=== PATIENT | female | born 1980 | race Caucasian/White ===

== ENCOUNTER 2017-12-22 11:21 | Emergency (ER) | payer BC ==
[2017-12-22 11:37] VITALS: BP 107/75
--- NOTE | 2017-12-22 12:05 | EDM.PDOC ---
ED HPI GENERAL MEDICAL PROBLEM - General Chief Complaint: Bite:Animal, Insect Stated Complaint: CAT BITE ON THUMB Time Seen by Provider: 12/22/17 11:34 Source of Information: Reports: Patient History Limitations: Reports: No Limitations - History of Present Illness INITIAL COMMENTS - FREE TEXT/NARRATIVE: The patient presents with a cat bite to her right thumb. The cat has been sick. She went to pet it and it bit her on the thumb. The cat is not up to date with rabies. It is her cat. The cat is a house cat but it does sneak out at times. The cat recently had kittens. The patient is not up to date with tetanus. Onset: Sudden Duration: Minutes: Location: Reports: Upper Extremity, Right (Thumb) Quality: Reports: Sharp Severity: Mild Improves with: Reports: None Worsens with: Reports: None Associated Symptoms: Reports: No Other Symptoms - Related Data Allergies Allergy/AdvReac Type Severity Reaction Status Date / Time No Known Allergies Allergy Verified 12/22/17 11:30 Home Meds: Home Meds Amoxicillin/Potassium Clav [Augmentin 875-125 Tablet] 1 each PO BID #20 tablet 12/22/17 [Rx] Past Medical History - Past Health History Medical/Surgical History: Denies Medical/Surgical History HEENT History: Reports: Impaired 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 WITH LAST CHILD. Social & Family History - Tobacco Use Smoking Status *Q: Current Every Day Smoker Years of Tobacco use: 20 Packs/Tins Daily: 1 - Caffeine Use Caffeine Use: Reports: Energy Drinks - Recreational Drug Use Recreational Drug Use: No ED ROS GENERAL - Review of Systems Review Of Systems: See Below Constitutional: Reports: No Symptoms HEENT: Reports: No Symptoms Respiratory: Reports: No Symptoms Cardiovascular: Reports: No Symptoms Endocrine: Reports: No Symptoms GI/Abdominal: Reports: No Symptoms : Reports: No Symptoms Musculoskeletal: Reports: Other (Puncture wound to right thumb) Skin: Reports: No Symptoms Neurological: Reports: No Symptoms ED EXAM, ANIMAL BITE - Physical Exam Exam: See Below Exam Limited By: No Limitations General Appearance: Alert, No Apparent Distress Ears: Normal External Exam Nose: Normal Inspection Head: Atraumatic, Normocephalic Neck: Normal Inspection Respiratory/Chest: No Respiratory Distress Extremities: Other (Puncture wound to right thumb. No erythema or drainage.) Course - Vital Signs Last Recorded V/S: Last Vital Signs Temp 97.8 F 12/22/17 11:34 Pulse 116 H 12/22/17 11:34 Resp 18 12/22/17 11:34 BP 107/75 12/22/17 11:34 Pulse Ox 97 12/22/17 11:34 - Orders/Labs/Meds Orders: Active Orders 24 hr Category Date Time Status Vaccines to be Administered [RC] PER UNIT ROUTINE Care 12/22/17 12:52 Active Meds: Medications Discontinued Medications Generic Name Dose Route Start Last Admin Trade Name Freq PRN Reason Stop Dose Admin Diphtheria/Tetanus/Acell Pertussis 0.5 ml 12/22/17 12:52 Adacel IM 12/22/17 12:53 .ONCE ONE Rabies Vaccine Human Diploid Cell 2.5 unit 12/22/17 12:52 Imovax Rabies IM 12/22/17 12:53 .ONCE ONE - Re-Assessments/Exams Free Text/Narrative Re-Assessment/Exam: 12/22/17 12:58 I called the patient's vet and ideally if the cat was immunized before they could just observe the cat for 10 days but since the cat has not been immunized it is more complex. They could kill the cat now to be tested but that would not happen until about Sunday. The vet at [facility] did recommend starting the vaccine. I did call the state and they did recommend the vaccine but we can hold off on the IGG until the cat gets checked. Departure - Departure Time of Disposition: 13:15 Disposition: Home, Self-Care 01 Condition: Good Clinical Impression: Cat bite Qualifiers: Encounter type: initial encounter Qualified Code(s): W55.01XA - Bitten by cat, initial encounter - Discharge Information Prescriptions: Amoxicillin/Potassium Clav [Augmentin 875-125 Tablet] 1 each PO BID #20 tablet Referrals: PCP,None [Primary Care Provider] - Forms: ED Department Discharge Additional Instructions: Clean the bite wound a couple times per day with warm soapy water and apply antibiotics after. Take the augmentin 2 times per day for 10 days. You were given the first dose of rabies vaccine. You need to have your cat examined by your vet and possibly tested for rabies. Please return if you have any concerns. The [place] department of health has been contacted. They said if you have any concerns you can call them at . - My Orders Last 24 Hours: My Active Orders 12/22/17 12:52 Vaccines to be Administered [RC] PER UNIT ROUTINE - Assessment/Plan Last 24 Hours: My Active Orders 12/22/17 12:52 Vaccines to be Administered [RC] PER UNIT ROUTINE
[2017-12-22] MEDS ORDERED: Rabies Vaccine, Human Diploid Cell PF 2.5 Unit SDV IM ONE (12:52)
[2017-12-22] MEDS ORDERED: Diphtheria,Pertussis(Acell),Tetanus Vaccine 0.5 ML SDV IM ONE (12:52)
== END 2017-12-22 13:49 | disposition home or self-care (01) ==
LOC: JD.ED 11:21
DX: S61.031A Puncture wound without foreign body of right thumb without damage to nail, initial encounter (principal); W55.01XA Bitten by cat, initial encounter; F17.210 Nicotine dependence, cigarettes, uncomplicated; Z23 Encounter for immunization
CPT/HCPCS: 90471; 90472; 90675; 90715; 99283; 99283-25

== ENCOUNTER 2018-12-19 15:27 | Emergency (ER) | payer BC ==
[2018-12-19 15:41] VITALS: BP 111/83
[2018-12-19] MEDS ORDERED: LORazepam 1 MG Tab PO ONE (16:15)
--- NOTE | 2018-12-19 16:27 | EDM.PDOC ---
ED HPI GENERAL MEDICAL PROBLEM - General Chief Complaint: Allergic Reaction Stated Complaint: ALLERGIC REACTION Time Seen by Provider: 12/19/18 15:35 Source of Information: Reports: Patient History Limitations: Reports: No Limitations - History of Present Illness INITIAL COMMENTS - FREE TEXT/NARRATIVE: The patient took some Celexa 20mg today and she developed blotching in her arms and burning to her skin and more anxiety. She also vomited twice. This was the first time taking the medication. She is taking it for anxiety. She has lots of stressors in her lift and she needed some help. She does not feel short of breath and she has no swelling in her throat. Onset: Sudden Duration: Minutes: Location: Reports: Generalized Quality: Reports: Burning Severity: Moderate Improves with: Reports: None Worsens with: Reports: None Associated Symptoms: Reports: Nausea/Vomiting. 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 WITH LAST CHILD. Social & Family History - Tobacco Use Smoking Status *Q: Current Every Day Smoker Years of Tobacco use: 21 Packs/Tins Daily: 1.5 - Caffeine Use Caffeine Use: Reports: Soda - Recreational Drug Use Recreational Drug Use: No ED ROS ALLERGIC REACTION - Review of Systems Review Of Systems: See Below Constitutional: Reports: No Symptoms HEENT: Reports: No Symptoms Respiratory: Reports: No Symptoms Cardiovascular: Reports: No Symptoms Endocrine: Reports: No Symptoms GI/Abdominal: Reports: Nausea, Vomiting : Reports: No Symptoms Musculoskeletal: Reports: No Symptoms ED EXAM GENERAL NO PERIP PULSE - Physical Exam Exam: See Below Exam Limited By: No Limitations General Appearance: Alert, No Apparent Distress Ears: Normal External Exam Nose: Normal Inspection Throat/Mouth: Normal Inspection Head: Atraumatic, Normocephalic Neck: Normal Inspection Respiratory/Chest: No Respiratory Distress, Lungs Clear, Normal Breath Sounds Cardiovascular: Regular Rate, Rhythm, No Edema, No Murmur GI/Abdominal: Soft, Non-Tender, No Organomegaly, No Mass Back Exam: Normal Inspection Course - Vital Signs Last Recorded V/S: Last Vital Signs Temp 98.3 F 12/19/18 15:35 Pulse 98 12/19/18 15:35 Resp 18 12/19/18 15:35 BP 111/83 12/19/18 15:35 Pulse Ox 100 12/19/18 15:35 - Orders/Labs/Meds Meds: Medications Discontinued Medications Generic Name Dose Route Start Last Admin Trade Name Corby PRN Reason Stop Dose Admin Lorazepam 1 mg 12/19/18 16:15 Ativan PO 12/19/18 16:16 ONETIME ONE - Re-Assessments/Exams Free Text/Narrative Re-Assessment/Exam: 12/19/18 16:41 I gave her some ativan to help with the anxiety she is experiencing now. I will have her stop the celexa and try some paxil. Departure - Departure Time of Disposition: 16:45 Disposition: Home, Self-Care 01 Condition: Good Clinical Impression: Adverse drug reaction Qualifiers: Encounter type: initial encounter Qualified Code(s): T50.905A - Adverse effect of unspecified drugs, medicaments and biological substances, initial encounter - Discharge Information *PRESCRIPTION DRUG MONITORING PROGRAM REVIEWED*: Not Applicable *COPY OF PRESCRIPTION DRUG MONITORING REPORT IN PATIENT GIANNA: Not Applicable Prescriptions: PARoxetine HCl [Paxil] 10 mg PO DAILY #30 tablet Referrals: PCP,None [Primary Care Provider] - Forms: ED Department Discharge Additional Instructions: Try the paxil 10mg daily. Start it tomorrow. If that helps you can stay at the dose or talk to your provider about going up with the dose. Please return if you are worse.
--- NOTE | 2018-12-19 16:35 | EDM.PDOC ---
<Jerman Sadler - Last Filed: 12/19/18 16:21> ED HPI GENERAL MEDICAL PROBLEM - General Chief Complaint: Allergic Reaction Stated Complaint: ALLERGIC REACTION Time Seen by Provider: 12/19/18 15:35 Source of Information: Reports: Patient History Limitations: Reports: No Limitations - History of Present Illness INITIAL COMMENTS - FREE TEXT/NARRATIVE: 38 Year old female presents to ER for adverse reaction to a new medication prescribed by her provider in [place] for anxiety. The patient states that the medication was Celexa (Citalopram) which she took at about 1100. 30 minutes later she experienced a warm feeling, and burning sensation in her arms and shoulders that she describes as "blotchiness", dry mouth, and two bouts of diarrhea. Pt did not have any shortness of breath, wheezing, facial or oral swelling, urticaria, rash, nausea or vomiting. She took Benadryl almost immediately after symptoms with no relief. She denies any aggravating factors. Pt does admit to having chronic depression and anxiety which she has never been on medication. She is reluctant to mention that she has of personal issues and expresses that she does not want to discuss them at this time. However, she states that she has expressed them in more detail with her provider in [place]. She admits to increased caffeine use, increase smoking 1.5 pk/day, and also trouble sleeping. She denies suicidal thoughts or actions. Onset: Today Onset Date: 12/19/18 Onset Time: 11:00 Duration: Improving Location: Reports: Upper Extremity, Left, Upper Extremity, Right, Generalized, Other Quality: Reports: Burning Severity: Moderate Improves with: Reports: None Worsens with: Reports: None Context: Reports: Other (at rest) Associated Symptoms: Reports: Other (Diarrhea x 2 ). 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 WITH LAST CHILD. Social & Family History - Tobacco Use Smoking Status *Q: Current Every Day Smoker Years of Tobacco use: 21 Packs/Tins Daily: 1.5 - Caffeine Use Caffeine Use: Reports: Soda - Recreational Drug Use Recreational Drug Use: No ED ROS ALLERGIC REACTION - Review of Systems Review Of Systems: See Below Constitutional: Reports: No Symptoms. Denies: Fever, Chills, Malaise, Weakness , Diaphoresis HEENT: Reports: No Symptoms. Denies: Eye Pain, Nosebleed, Rhinitis, Throat Pain , Throat Swelling Respiratory: Reports: No Symptoms. Denies: Shortness of Breath, Wheezing, Cough Cardiovascular: Reports: No Symptoms. Denies: Chest Pain, Edema, Palpitations Endocrine: Reports: No Symptoms GI/Abdominal: Reports: No Symptoms, Diarrhea (See hpi). Denies: Abdominal Pain , Difficulty Swallowing, Flatus, Vomiting : Reports: No Symptoms. Denies: Dysuria, Flank Pain, Frequency, Pain Musculoskeletal: Reports: No Symptoms. Denies: Muscle Stiffness Skin: Reports: Other (Pt states her arms are "blotchy" and have a burning sensation bilaterally) Neurological: Reports: No Symptoms. Denies: Dizziness, Headache, Paresthesia, Tingling, Weakness Psychiatric: Reports: Anxiety, Depression, Other (Never hospitalized for psychiatric illness). Denies: Suicidal Ideation Hematologic/Lymphatic: Reports: No Symptoms. Denies: Anemia Immunologic: Reports: Other (Possible adverse reaction to Citalopram.) ED EXAM GENERAL NO PERIP PULSE - Physical Exam Exam: See Below Exam Limited By: No Limitations General Appearance: Alert, WD/WN, No Apparent Distress, Thin Eye Exam: Bilateral Eye: EOMI, Normal Inspection, PERRL Ears: Normal External Exam, Normal Canal, Hearing Grossly Normal, Normal TMs Nose: Normal Inspection, Normal Mucosa, No Blood Throat/Mouth: Normal Inspection, Normal Lips, Normal Teeth, Normal Gums, Normal Oropharynx, Normal Voice, No Airway Compromise Head: Atraumatic, Normocephalic Neck: Normal Inspection, Supple, Non-Tender, Full Range of Motion Respiratory/Chest: No Respiratory Distress, Lungs Clear, Normal Breath Sounds, No Accessory Muscle Use, Chest Non-Tender. No: Wheezing, Stridor, Prolonged Expiration Cardiovascular: Normal Peripheral Pulses, Regular Rate, Rhythm, No Edema, No Gallop, No JVD, No Murmur, No Rub GI/Abdominal: Normal Bowel Sounds, Soft, Non-Tender, No Organomegaly, No Distention, No Abnormal Bruit, No Mass (Female) Exam: Deferred Rectal (Female) Exam: Deferred Back Exam: Normal Inspection, Full Range of Motion, NT Extremities: Normal Inspection, Normal Range of Motion, Non-Tender, Normal Capillary Refill, No Pedal Edema Neurological: Alert, Oriented, CN II-XII Intact, Normal Cognition, Normal Gait, Normal Reflexes, No Motor/Sensory Deficits Psychiatric: Anxious, Other (Assertive) Skin Exam: Warm, Dry, Intact, Normal Color, No Rash (of the upper or lower extremities, torsoe, nech or head.), Tattoo(s) Lymphatic: No Adenopathy Course - Vital Signs Last Recorded V/S: Last Vital Signs Temp 98.3 F 12/19/18 15:35 Pulse 98 12/19/18 15:35 Resp 18 12/19/18 15:35 BP 111/83 12/19/18 15:35 Pulse Ox 100 12/19/18 15:35 - Orders/Labs/Meds Meds: Medications Discontinued Medications Generic Name Dose Route Start Last Admin Trade Name Daronq PRN Reason Stop Dose Admin Lorazepam 1 mg 12/19/18 16:15 Ativan PO 12/19/18 16:16 ONETIME ONE Departure - Departure Disposition: Home, Self-Care 01 Clinical Impression: Adverse drug reaction Qualifiers: Encounter type: initial encounter Qualified Code(s): T50.905A - Adverse effect of unspecified drugs, medicaments and biological substances, initial encounter - Discharge Information Prescriptions: PARoxetine HCl [Paxil] 10 mg PO DAILY #30 tablet Referrals: PCP,None [Primary Care Provider] - Forms: ED Department Discharge Additional Instructions: Try the paxil 10mg daily. Start it tomorrow. If that helps you can stay at the dose or talk to your provider about going up with the dose. Please return if you are worse. <Sharath Mcintosh - Last Filed: 12/19/18 16:47> Course - Re-Assessments/Exams Free Text/Narrative Re-Assessment/Exam: 12/19/18 16:46 I examined the patient myself and I agree with Murtaza's assessment and plan. I gave her some ativan and I will get her some paxil that she can start tomorrow. Departure - Departure Time of Disposition: 16:50 - Discharge Information *PRESCRIPTION DRUG MONITORING PROGRAM REVIEWED*: Not Applicable *COPY OF PRESCRIPTION DRUG MONITORING REPORT IN PATIENT GIANNA: Not Applicable
== END 2018-12-19 17:08 | disposition home or self-care (01) ==
LOC: JD.ED 15:27
DX: R20.8 Other disturbances of skin sensation (principal); R19.7 Diarrhea, unspecified; T43.225A Adverse effect of selective serotonin reuptake inhibitors, initial encounter; F17.210 Nicotine dependence, cigarettes, uncomplicated; Z79.899 Other long term (current) drug therapy
CPT/HCPCS: 99283; A9270

== ENCOUNTER 2018-12-21 21:01 | Emergency (ER) | payer BC ==
[2018-12-21] MEDS ORDERED: Sodium Chloride 0.9% 1,000 ML ONE ×3 (23:19)
[2018-12-22 08:21] VITALS: BP 115/85
[2018-12-22] MEDS ORDERED: Lactated Ringers 1,000 ML IV ONE (08:34)
--- NOTE | 2018-12-22 14:29 | CR ---
Chest: Two views of the chest were obtained. Comparison: No previous chest x-ray. Heart size and mediastinum are normal. Lungs are clear. Lucent line is identified within the anterior right sixth rib compatible with fracture, most likely subacute. Bony structures are otherwise unremarkable. Lungs are slightly hyperinflated. Impression: 1. Lungs slightly hyperinflated. This may represent good inspiratory study but please correlate if there are any symptoms of asthma or history of smoking. 2. Fracture within the anterior right sixth rib, most likely subacute in age. 3. Nothing acute is otherwise seen. Diagnostic code #3
--- NOTE | 2019-01-04 20:22 | EDM.PDOC ---
ED HPI GENERAL MEDICAL PROBLEM - General Chief Complaint: Skin Complaint Stated Complaint: POSS ALLERGIC REACTION CHEST PAIN Time Seen by Provider: 12/21/18 21:58 Source of Information: Reports: Patient History Limitations: Reports: No Limitations - History of Present Illness INITIAL COMMENTS - FREE TEXT/NARRATIVE: The patient was seen during [facility] downtime. Notes were taken, and this electronic medical record is created from those notes. Medical records indicate that the patient was seen in this ED 2 days ago, , 12/19/2018, for a possible adverse reaction to Celexa that she had just been prescribed and taken for the first time that day. She reported a warm feeling, a burning sensation in her arms and shoulders, a dry mouth, and 2 episodes of diarrhea. She did not have any shortness of breath, wheezing, facial or oral swelling, urticaria, rash, nausea, or vomiting. She took Benadryl after her symptoms began, with no relief. She reported a history of chronic anxiety and depression, not previously treated. Her physical exam was unremarkable. She was given 1 mg of oral Ativan and discharged home with a prescription for Paxil 10 mg that she was instructed to start the following day (yesterday). The patient now returns to the ED, stating that she is now having a reaction to Lexapro that she was started on today. She states that she filled the prescription for Paxil that she was prescribed by the ED physician 2 days ago, but did not take any (it's not clear why not). She spoke with her PCP yesterday , 12/20/2018, who then called in a prescription for Lexapro. The patient took her first dose of Lexapro today. She states that the left side of her chest began burning around 18:00, and that this is not the same as the burning sensation that she also feels across her chest - the left sided burning sensation is new, and she has not had it before. She continues to have the burning sensation felt across her chest and down both of her arms, all the way to her fingertips, which has been coming and going since 12/19/2018. She reports having nausea and vomiting. She reports feeling vertiginous today, worse if she looks down. She denies prior episodes of vertigo. She denies having tinnitus, ear pain, or decreased hearing. No recent fever. She reports having blotchy skin on and off since 12/11/2018, although she does not have a rash at this time, and did not take any photographs. She denies symptoms of angioedema or wheezing, although she states that she is feeling short of breath here in the ED, associated with the sensation of having an anxiety attack. Here in the ED, the patient is found to be hemodynamically stable. The patient's PCP is at the [facility]. 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 ED EXAM, GENERAL - Physical Exam Exam: See Below Exam Limited By: No Limitations General Appearance: Alert, No Apparent Distress, Thin Eye Exam: Bilateral Eye: EOMI, Normal Inspection Ears: Normal External Exam, Normal Canal, Hearing Grossly Normal, Normal TMs Nose: Normal Inspection, Normal Mucosa, No Blood Throat/Mouth: Normal Inspection, Normal Lips (no angioedema), Normal Teeth, Normal Gums, Normal Oropharynx (no uvular swelling), Normal Voice, No Airway Compromise Head: Atraumatic, Normocephalic Neck: Normal Inspection, Supple, Non-Tender, Full Range of Motion. No: Lymphadenopathy (L), Lymphadenopathy (R) Respiratory/Chest: No Respiratory Distress, Lungs Clear, Normal Breath Sounds, No Accessory Muscle Use. No: Decreased Breath Sounds, Crackles, Rhonchi, Wheezing, Stridor, Prolonged Expiration Cardiovascular: Normal Peripheral Pulses, Regular Rate, Rhythm, No Edema, No Gallop, No JVD, No Murmur, No Rub Peripheral Pulses: 4+: Radial (L), Radial (R) GI/Abdominal: Normal Bowel Sounds, Soft, Non-Tender, No Organomegaly, No Distention, No Abnormal Bruit, No Mass (Female) Exam: Deferred Rectal (Female) Exam: Deferred Back Exam: Normal Inspection, Full Range of Motion, NT Extremities: Normal Inspection, Normal Range of Motion, No Pedal Edema, Normal Capillary Refill Neurological: Alert, Oriented, Normal Cognition, No Motor/Sensory Deficits Psychiatric: Anxious Skin Exam: Warm, Dry, Intact, Normal Color, No Rash EKG INTERPRETATION EKG Date: 12/21/18 Time: 22:51 Rhythm: NSR (2 PVCs) Rate (Beats/Min): 67 [place]: Normal P-Wave: Present QRS: Normal ST-T: Normal QT: Normal EKG Interpretation Comments[facility] - unable to see if prior ECG has been done. Course - Vital Signs Last Recorded V/S: Last Vital Signs Temp 36.6 C 12/22/18 01:06 Pulse 72 12/22/18 01:06 Resp 16 12/22/18 01:06 BP 115/85 12/22/18 01:06 Pulse Ox 99 12/22/18 01:06 - Orders/Labs/Meds Labs: Laboratory Tests 12/21/18 12/21/18 12/21/18 Range/Units 23:05 23:05 23:05 WBC 10.08 H (3.98-10.04) K/mm3 RBC 4.87 (3.98-5.22) M/mm3 Hgb 15.1 (11.2-15.7) gm/L Hct 44.4 (34.1-44.9) % MCV 91.2 (79.4-94.8) fl MCH 31.0 (25.6-32.2) pg MCHC 34.0 (32.2-35.5) g/dl RDW Std Deviation 46.0 (36.4-46.3) fL Plt Count 327 (182-369) K/mm3 MPV 9.1 L (9.4-12.3) fl Neutrophils % (Manual) 59 (40-60) % Band Neutrophils % 0 (0-10) % Lymphocytes % (Manual) 32 (20-40) % Atypical Lymphs % 0 % Monocytes % (Manual) 7 (2-10) % Eosinophils % (Manual) 1 (0.7-5.8) % Basophils % (Manual) 1 (0.1-1.2) Platelet Estimate Adequate RBC Morph Comment Normal D-Dimer, Quantitative < 0.19 L (0.19-0.50) mg/L ABG pH (7.35-7.45) ABG pCO2 (35.0-45.0) mmHg ABG pO2 (80.0-100.0) mmHg ABG HCO3 (22.0-26.0) meq/L ABG O2 Saturation (96.0-97.0) % ABG Base Excess (-2-2.0) Shady Test O2 Delivery Device FiO2 (21.00-100.00) % Sodium 142 (136-145) mEq/L Potassium 3.3 L (3.5-5.1) mEq/L Chloride 106 (98-107) mEq/L Carbon Dioxide 24 (21-32) mEq/L Anion Gap 15.3 H (5-15) BUN 14 (7-18) mg/dL Creatinine 0.8 (0.55-1.02) mg/dL Est Cr Clr Drug Dosing TNP Estimated GFR (MDRD) > 60 (>60) mL/min BUN/Creatinine Ratio 17.5 (14-18) Glucose 96 (74-106) mg/dL Calcium 10.1 (8.5-10.1) mg/dL Magnesium 2.3 (1.8-2.4) mg/dl Total Bilirubin 0.4 (0.2-1.0) mg/dL AST 11 L (15-37) U/L ALT 21 (14-59) U/L Alkaline Phosphatase 70 (46-116) U/L C-Reactive Protein 0.2 (<1.0) mg/dL Total Protein 7.8 (6.4-8.2) g/dl Albumin 4.4 (3.4-5.0) g/dl Globulin 3.4 gm/dL Albumin/Globulin Ratio 1.3 (1-2) TSH 3rd Generation 2.090 (0.358-3.74) uIU/mL Urine Color (Yellow) Urine Appearance (Clear) Urine pH (5.0-8.0) Ur Specific [place] (1.005-1.030) Urine Protein (Negative) Urine Glucose (UA) (Negative) Urine Ketones (Negative) Urine Occult Blood (Negative) Urine Nitrite (Negative) Urine Bilirubin (Negative) Urine Urobilinogen (0.2-1.0) Ur Leukocyte Esterase (Negative) Urine RBC (0-5) /hpf Urine WBC (0-5) /hpf Ur Epithelial Cells (0-5) /hpf Urine Bacteria (FEW) /hpf Urine Mucus (FEW) /hpf Urine HCG, Qual (NEGATIVE) 12/21/18 12/21/18 12/22/18 Range/Units 23:15 23:15 08:34 WBC (3.98-10.04) K/mm3 RBC (3.98-5.22) M/mm3 Hgb (11.2-15.7) gm/L Hct (34.1-44.9) % MCV (79.4-94.8) fl MCH (25.6-32.2) pg MCHC (32.2-35.5) g/dl RDW Std Deviation (36.4-46.3) fL Plt Count (182-369) K/mm3 MPV (9.4-12.3) fl Neutrophils % (Manual) (40-60) % Band Neutrophils % (0-10) % Lymphocytes % (Manual) (20-40) % Atypical Lymphs % % Monocytes % (Manual) (2-10) % Eosinophils % (Manual) (0.7-5.8) % Basophils % (Manual) (0.1-1.2) Platelet Estimate RBC Morph Comment D-Dimer, Quantitative (0.19-0.50) mg/L ABG pH 7.41 (7.35-7.45) ABG pCO2 31.7 L (35.0-45.0) mmHg ABG pO2 91.0 (80.0-100.0) mmHg ABG HCO3 19.8 L (22.0-26.0) meq/L ABG O2 Saturation 98.0 H (96.0-97.0) % ABG Base Excess -3.3 L (-2-2.0) Shady Test Positive O2 Delivery Device Room air FiO2 0.00 L (21.00-100.00) % Sodium (136-145) mEq/L Potassium (3.5-5.1) mEq/L Chloride (98-107) mEq/L Carbon Dioxide (21-32) mEq/L Anion Gap (5-15) BUN (7-18) mg/dL Creatinine (0.55-1.02) mg/dL Est Cr Clr Drug Dosing Estimated GFR (MDRD) (>60) mL/min BUN/Creatinine Ratio (14-18) Glucose (74-106) mg/dL Calcium (8.5-10.1) mg/dL Magnesium (1.8-2.4) mg/dl Total Bilirubin (0.2-1.0) mg/dL AST (15-37) U/L ALT (14-59) U/L Alkaline Phosphatase (46-116) U/L C-Reactive Protein (<1.0) mg/dL Total Protein (6.4-8.2) g/dl Albumin (3.4-5.0) g/dl Globulin gm/dL Albumin/Globulin Ratio (1-2) TSH 3rd Generation (0.358-3.74) uIU/mL Urine Color Dark yellow (Yellow) Urine Appearance Clear (Clear) Urine pH 6.0 (5.0-8.0) Ur Specific [place] > or = 1.030 (1.005-1.030) Urine Protein 1+ H (Negative) Urine Glucose (UA) Negative (Negative) Urine Ketones 3+ H (Negative) Urine Occult Blood 2+ H (Negative) Urine Nitrite Negative (Negative) Urine Bilirubin 2+ H (Negative) Urine Urobilinogen 1.0 (0.2-1.0) Ur Leukocyte Esterase Negative (Negative) Urine RBC 10-20 H (0-5) /hpf Urine WBC Not seen (0-5) /hpf Ur Epithelial Cells 0-5 (0-5) /hpf Urine Bacteria Few (FEW) /hpf Urine Mucus Many H (FEW) /hpf Urine HCG, Qual Negative (NEGATIVE) Meds: Medications Discontinued Medications Generic Name Dose Route Start Last Admin Trade Name Freq PRN Reason Stop Dose Admin Lactated Ringer's 1,000 mls @ 999 mls/hr 12/22/18 08:34 12/22/18 08:36 Ringers, Lactated IV 12/22/18 09:34 Not Given .BOLUS ONE Sodium Chloride Confirm 12/21/18 23:19 Normal Saline Administered 12/21/18 23:20 Dose 1,000 mls @ as directed .ROUTE .STK-MED ONE Sodium Chloride Confirm 12/21/18 23:19 Normal Saline Administered 12/21/18 23:20 Dose 1,000 mls @ as directed .ROUTE .STK-MED ONE Sodium Chloride Confirm 12/21/18 23:19 Normal Saline Administered 12/21/18 23:20 Dose 1,000 mls @ as directed .ROUTE .STK-MED ONE - Re-Assessments/Exams Free Text/Narrative Re-Assessment/Exam: 12/21/18 22:39 The patient's history and physical examination strongly suggest that all of her symptoms are related to anxiety. I have no reason to suspect that she is having an adverse reaction to either the Celexa or Lexapro that she took, as she took only a single dose of each of those. Nevertheless, I have ordered a workup to rule out an organic underlying cause. 12/21/18 23:02 2-view chest radiograph appears to be grossly normal. The cardiac silhouette is within normal limits. No pulmonary vascular congestion. No pleural effusions. No focal infiltrate. No pneumothorax. Formal read per the Radiologist pending. 12/21/18 23:16 The patient is orthostatic. I will order a 1 L bolus of LR and then re-check orthostatics. 12/22/18 00:35 Following 1 L of LR, the patient is no longer orthostatic. 12/22/18 00:53 Test results discussed with the patient and her . Other than being found to be orthostatic, the patient's workup tonight was unremarkable. I explained that I suspect that the patient's symptoms are all due to hyperventilation syndrome due to anxiety, and I recommended that the patient continue with one of the anxiolytic medications that she has been prescribed. I explained to the patient that SSRIs usually take 3-4 weeks before they take effect, and that the patient needs to be patient with them and she is not going to get immediate, overnight relief. The patient stated that she would be willing to continue to take Lexapro. I recommended that she follow-up with her prescribing provider in 3 or 4 weeks. Departure - Departure Time of Disposition: 01:00 Disposition: Home, Self-Care 01 Condition: Good Clinical Impression: Hyperventilation syndrome - Discharge Information *PRESCRIPTION DRUG MONITORING PROGRAM REVIEWED*: Not Applicable *COPY OF PRESCRIPTION DRUG MONITORING REPORT IN PATIENT GIANNA: Not Applicable Referrals: PCP,Not In Area [Primary Care Provider] - Forms: ED Department Discharge Additional Instructions: You were seen in the emergency room for a burning sensation to your left chest, along with a different burning sensation felt across her chest and down both arms, along with nausea, vomiting, and dizziness. Workup in the ER included blood work, an arterial blood gas, positional blood pressure checks, a urinalysis, a urine test, a chest x-ray, and an ECG. Your workup found that you were orthostatic = low volume. You were given 1 L of IV fluid, and your numbers normalized. Your arterial blood gas found that you have been chronically hyperventilating. The remainder of your workup was unremarkable. You do not have an infection. You are not anemic. No electrolyte abnormalities were found. Your liver enzymes were normal. You do not have a blood clot in your lungs. You do not have pneumonia or a collapsed lung. You are not hyperthyroid. You do not have a urinary tract infection. You are not . No abnormal rhythms were found. Based on your history, physical examination, and ER tests, the cause of your symptoms is most likely due to hyperventilation syndrome. As discussed, hyperventilation syndrome is not harmful to you, but it decreases the quality of your life. As discussed, we recommend that you continue to take Lexapro, as prescribed. Follow-up with your PCP within the next few weeks. If any other problems, please do not hesitate to return to the ER.
== END 2018-12-22 01:06 | disposition home or self-care (01) ==
LOC: JD.ED 21:01
DX: F45.8 Other somatoform disorders (principal); F17.210 Nicotine dependence, cigarettes, uncomplicated; F41.8 Other specified anxiety disorders; Z79.899 Other long term (current) drug therapy
CPT/HCPCS: 36415; 36600; 71046; 71046-26; 80053; 81001; 81025; 82803; 83735; 84443; 85007; 85027; 85379; 86140; 93005; 96360; 99284-25

== ENCOUNTER 2019-02-24 20:18 | Emergency (ER) | payer BC ==
[2019-02-24 20:40] VITALS: BP 130/80
[2019-02-24] MEDS ORDERED: Sodium Chloride 0.9% 500 ML IV ONE (21:03)
[2019-02-24] MEDS ORDERED: Sodium Chloride 0.9% 10 ML Syringe FLUSH PRN (21:03)
[2019-02-24] MEDS ORDERED: Acetaminophen 325 MG Tab PO ONE (22:12)
--- NOTE | 2019-02-24 22:31 | EDM.PDOC ---
ED HPI GENERAL MEDICAL PROBLEM - General Chief Complaint: Neurological Problem Stated Complaint: NUMBNESS,DIZZY ARM PAIN Time Seen by Provider: 02/24/19 20:51 Source of Information: Reports: Patient, RN Notes Reviewed - History of Present Illness INITIAL COMMENTS - FREE TEXT/NARRATIVE: 39 year old female presents with nonspecific dizziness, Pain L upper air, numbness L arm extending to fingers of hand. No focal weakness. She has been having some neck pain. No appetite, not eating or drinking well. She has had the dizziness off and on for days, the pain of her L arm and numbness L hand and arm started about 6 to 8 hrs ago. No chest pain or difficulty breathing. 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 WITH LAST CHILD. Psychiatric History: Reports: Anxiety - Past Surgical History Female Surgical History: Reports: Section Social & Family History - Tobacco Use Smoking Status *Q: Current Every Day Smoker Years of Tobacco use: 20 Packs/Tins Daily: 1 - Caffeine Use Caffeine Use: Reports: None - Recreational Drug Use Recreational Drug Use: No - Living Situation & Occupation Living situation: Reports: , with Spouse, with Family (3 sons) Occupation: Unemployed ED ROS GENERAL - Review of Systems Review Of Systems: See Below Constitutional: Denies: Fever, Chills, Diaphoresis HEENT: Denies: Throat Pain Respiratory: Denies: Shortness of Breath Cardiovascular: Denies: Chest Pain GI/Abdominal: Reports: Decreased Appetite. Denies: Abdominal Pain, Nausea, Vomiting ED EXAM, NEURO - Physical Exam Exam: See Below General Appearance: Alert, No Apparent Distress, Anxious Eye Exam: Bilateral Eye: PERRL Nose: Other (mild tenderness L base) Head Exam: Atraumatic Neck: Supple Respiratory/Chest: No Respiratory Distress, Lungs Clear, Normal Breath Sounds Cardiovascular: Regular Rate, Rhythm GI/Abdominal: Soft, Non-Tender Neurological: Alert, No Motor/Sensory Deficits, Oriented x 3, Other (finger to nose normal) Extremities: Normal Inspection, Normal Range of Motion Skin Exam: Warm, Dry, Normal Color, No Rash Course - Vital Signs Last Recorded V/S: Last Vital Signs Temp 97.7 F 02/24/19 20:34 Pulse 69 02/24/19 20:34 Resp 16 02/24/19 20:34 BP 130/80 02/24/19 20:34 Pulse Ox 99 02/24/19 20:34 - Orders/Labs/Meds Orders: Active Orders 24 hr Category Date Time Status Peripheral IV Care [RC] . DIRECTED Care 02/24/19 21:03 Active Peripheral IV Insertion Adult [OM.PC] Stat Oth 02/24/19 21:02 Ordered Labs: Laboratory Tests 02/24/19 02/24/19 02/24/19 Range/Units 21:26 21:26 21:26 WBC 9.99 (3.98-10.04) K/mm3 RBC 4.79 (3.98-5.22) M/mm3 Hgb 15.1 (11.2-15.7) gm/L Hct 44.1 (34.1-44.9) % MCV 92.1 (79.4-94.8) fl MCH 31.5 (25.6-32.2) pg MCHC 34.2 (32.2-35.5) g/dl RDW Std Deviation 45.7 (36.4-46.3) fL Plt Count 307 (182-369) K/mm3 MPV 9.2 L (9.4-12.3) fl Neut % (Auto) 66.2 (34.0-71.1) % Lymph % (Auto) 26.2 (19.3-51.7) % [place] % (Auto) 5.9 (4.7-12.5) % Eos % (Auto) 1.2 (0.7-5.8) Baso % (Auto) 0.4 (0.1-1.2) % Neut # (Auto) 6.61 H (1.56-6.13) K/mm3 Lymph # (Auto) 2.62 (1.18-3.74) K/mm3 [place] # (Auto) 0.59 H (0.24-0.36) K/mm3 Eos # (Auto) 0.12 (0.04-0.36) K/mm3 Baso # (Auto) 0.04 (0.01-0.08) K/mm3 Sodium 141 (136-145) mEq/L Potassium 3.1 L (3.5-5.1) mEq/L Chloride 106 (98-107) mEq/L Carbon Dioxide 24 (21-32) mEq/L Anion Gap 14.1 (5-15) BUN 9 (7-18) mg/dL Creatinine 0.8 (0.55-1.02) mg/dL Est Cr Clr Drug Dosing 75.84 mL/min Estimated GFR (MDRD) > 60 (>60) mL/min BUN/Creatinine Ratio 11.3 L (14-18) Glucose 90 (74-106) mg/dL Calcium 9.8 (8.5-10.1) mg/dL Magnesium 2.1 (1.8-2.4) mg/dl Total Bilirubin 0.2 (0.2-1.0) mg/dL AST 10 L (15-37) U/L ALT 15 (14-59) U/L Alkaline Phosphatase 81 (46-116) U/L Total Protein 7.6 (6.4-8.2) g/dl Albumin 4.3 (3.4-5.0) g/dl Globulin 3.3 gm/dL Albumin/Globulin Ratio 1.3 (1-2) Meds: Medications Discontinued Medications Generic Name Dose Route Start Last Admin Trade Name Freq PRN Reason Stop Dose Admin Acetaminophen 975 mg 02/24/19 22:12 02/24/19 22:25 Tylenol PO 02/24/19 22:13 975 mg NOW ONE Administration Sodium Chloride 500 mls @ 999 mls/hr 02/24/19 21:03 02/24/19 21:31 Normal Saline IV 02/24/19 21:33 999 mls/hr .BOLUS ONE Administration Sodium Chloride 10 ml 02/24/19 21:03 02/24/19 21:32 Saline Flush FLUSH 10 ml ASDIRECTED PRN Administration Keep Vein Open - Re-Assessments/Exams Free Text/Narrative Re-Assessment/Exam: 02/24/19 22:41 have given about 600 ml NS, she feels better, K+ low at 3.1, labs are otherwise good, discharge instr., the pain L arm and numbness is likely from pinched nerve in her neck, exacerbated by hyokalemia. Departure - Departure Time of Disposition: 22:36 Disposition: Home, Self-Care 01 Condition: Fair Clinical Impression: Paresthesias, Dizziness, Hypokalemia - Discharge Information Instructions: Hypokalemia, Dizziness, [id number], Paresthesia, [id number] Referrals: PCP,Not In Area [Primary Care Provider] - Forms: ED Department Discharge Additional Instructions: bananas are an excellent source of potassium, try eat 2 or 3 a day, other fruit and vegetables are also good, potatoes are also high in potassium. See Denita at clinic in 2 to 3 days for recheck, further treatment as needed. Return to ED as needed if symptoms worsening in any way. Tylenol or ibuprofen as needed for discomfort. - My Orders Last 24 Hours: My Active Orders 02/24/19 21:02 Peripheral IV Insertion Adult [OM.PC] Stat 02/24/19 21:03 Peripheral IV Care [RC] . DIRECTED - Assessment/Plan Last 24 Hours: My Active Orders 02/24/19 21:02 Peripheral IV Insertion Adult [OM.PC] Stat 02/24/19 21:03 Peripheral IV Care [RC] . DIRECTED
== END 2019-02-24 22:53 | disposition home or self-care (01) ==
LOC: JD.ED 20:18
DX: R42 Dizziness and giddiness (principal); E87.6 Hypokalemia; R20.2 Paresthesia of skin; F17.210 Nicotine dependence, cigarettes, uncomplicated
CPT/HCPCS: 36415; 80053; 83735; 85025; 96360; 99284; A9270; J7040

== ENCOUNTER 2021-01-15 21:24 | Emergency (ER) | payer BC, OTHER ==
[2021-01-15 21:45] VITALS: PULSE 76
[2021-01-15] MEDS ORDERED: Sodium Chloride 0.9% 10 ML Syringe FLUSH PRN (21:46)
[2021-01-15] MEDS ORDERED: Ketorolac 30 MG/ML SDV IVPUSH ONE (21:53)
--- NOTE | 2021-01-15 22:13 | EDM.PDOC ---
ED HPI GENERAL MEDICAL PROBLEM - General Chief Complaint: Flank Pain Stated Complaint: BACK AND ABDOMINAL PAIN POSSIBLE KIDNEY STONE Time Seen by Provider: 01/15/21 21:40 Source of Information: Reports: Patient, Family, RN Notes Reviewed History Limitations: Reports: No Limitations - History of Present Illness INITIAL COMMENTS - FREE TEXT/NARRATIVE: Patient is a 40-year-old female presenting to the emergency department with complaints of left flank pain as well as left lower quadrant/groin pain. Symptoms began with acute onset of left flank pain yesterday. The back pain has resolved but she now has pain low in her left lower quadrant and into her groin. She states she has a history of kidney stones on the right side but that this feels different. Denies any history of ovarian cyst. Denies any possibility of as she has had a tubal ligation and is also on Depo-Provera. She has not taken anything for pain. Denies any nausea, vomiting, diarrhea, fever, or chills. 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 WITH LAST CHILD. Psychiatric History: Reports: Anxiety - Infectious Disease History Infectious Disease History: Reports: Chicken Pox - Past Surgical History Female Surgical History: Reports: Section, Tubal Ligation Social & Family History - Family History Family Medical History: No Pertinent Family History - Tobacco Use Tobacco Use Status *Q: Current Every Day Tobacco User Years of Tobacco use: 23 Packs/Tins Daily: 2.5 - Caffeine Use Caffeine Use: Reports: Coffee, Energy Drinks - Recreational Drug Use Recreational Drug Use: No - Living Situation & Occupation Living situation: Reports: , with Spouse, with Family (3 sons) Occupation: Unemployed ED ROS GENERAL - Review of Systems Review Of Systems: See Below Constitutional: Reports: No Symptoms. Denies: Fever, Chills, Weakness HEENT: Reports: No Symptoms Respiratory: Reports: No Symptoms Cardiovascular: Reports: No Symptoms Endocrine: Reports: No Symptoms GI/Abdominal: Reports: Abdominal Pain (LLQ tenderness). Denies: Constipation, Diarrhea, Nausea, Vomiting : Reports: Flank Pain (left) Musculoskeletal: Reports: No Symptoms Skin: Reports: No Symptoms Neurological: Reports: No Symptoms Psychiatric: Reports: No Symptoms Hematologic/Lymphatic: Reports: No Symptoms Immunologic: Reports: No Symptoms ED EXAM, GI/ABD - Physical Exam Exam: See Below Exam Limited By: No Limitations General Appearance: Alert, WD/WN, No Apparent Distress Respiratory/Chest: No Respiratory Distress, Lungs Clear, Normal Breath Sounds, No Accessory Muscle Use, Chest Non-Tender Cardiovascular: Normal Peripheral Pulses, Regular Rate, Rhythm, No Edema, No Gallop, No JVD, No Murmur, No Rub GI/Abdominal Exam: Normal Bowel Sounds, Soft, No Organomegaly, No Distention, No Abnormal Bruit, No Mass, Pelvis Stable, Tender (mild LLQ). No: Guarding, Rigid Back Exam: Normal Inspection, Full Range of Motion. No: CVA Tenderness (L), CVA Tenderness (R) Extremities: Normal Inspection, Normal Range of Motion, Non-Tender, Normal Capillary Refill, No Pedal Edema Neurological: Alert, Oriented, CN II-XII Intact, Normal Cognition, Normal Gait, Normal Reflexes, No Motor/Sensory Deficits Psychiatric: Normal Affect, Normal Mood Skin Exam: Warm, Dry, Intact, Normal Color, No Rash Course - Vital Signs Last Recorded V/S: Last Vital Signs Temp 96.8 F L 01/15/21 23:45 Pulse 76 01/15/21 23:45 Resp 14 01/15/21 23:45 BP 110/80 01/15/21 23:45 Pulse Ox 98 01/15/21 23:45 - Orders/Labs/Meds Orders: Active Orders 24 hr Category Date Time Status Peripheral IV Insertion Adult [OM.PC] Stat Oth 01/15/21 21:46 Ordered Labs: Laboratory Tests 01/15/21 01/15/21 01/15/21 Range/Units 21:46 22:15 22:15 WBC 13.46 H (3.98-10.04) K/mm3 RBC 5.33 H (3.98-5.22) M/mm3 Hgb 16.4 H (11.2-15.7) gm/dl Hct 48.6 H (34.1-44.9) % MCV 91.2 (79.4-94.8) fl MCH 30.8 (25.6-32.2) pg MCHC 33.7 (32.2-35.5) g/dl RDW Std Deviation 48.1 H (36.4-46.3) fL Plt Count 356 (182-369) K/mm3 MPV 8.9 L (9.4-12.3) fl Neut % (Auto) 64.5 (34.0-71.1) % Lymph % (Auto) 27.5 (19.3-51.7) % [place] % (Auto) 5.7 (4.7-12.5) % Eos % (Auto) 1.6 (0.7-5.8) Baso % (Auto) 0.4 (0.1-1.2) % Neut # (Auto) 8.68 H (1.56-6.13) K/mm3 Lymph # (Auto) 3.70 (1.18-3.74) K/mm3 [place] # (Auto) 0.77 H (0.24-0.36) K/mm3 Eos # (Auto) 0.22 (0.04-0.36) K/mm3 Baso # (Auto) 0.05 (0.01-0.08) K/mm3 Manual Slide Review Sodium (136-145) mEq/L Potassium (3.5-5.1) mEq/L Chloride (98-107) mEq/L Carbon Dioxide (21-32) mEq/L Anion Gap (5-15) BUN (7-18) mg/dL Creatinine (0.55-1.02) mg/dL Est Cr Clr Drug Dosing mL/min Estimated GFR (MDRD) (>60) mL/min BUN/Creatinine Ratio (14-18) Glucose (74-106) mg/dL Calcium (8.5-10.1) mg/dL Total Bilirubin (0.2-1.0) mg/dL AST (15-37) U/L ALT (14-59) U/L Alkaline Phosphatase (46-116) U/L C-Reactive Protein (<1.0) mg/dL Total Protein (6.4-8.2) g/dl Albumin (3.4-5.0) g/dl Globulin gm/dL Albumin/Globulin Ratio (1-2) HCG, Qual Negative (NEGATIVE) Urine Color Yellow (Yellow) Urine Appearance Clear (Clear) Urine pH 7.0 (5.0-8.0) Ur Specific [place] 1.015 (1.005-1.030) Urine Protein Negative (Negative) Urine Glucose (UA) Negative (Negative) Urine Ketones Negative (Negative) Urine Occult Blood Trace-lysed H (Negative) Urine Nitrite Negative (Negative) Urine Bilirubin Negative (Negative) Urine Urobilinogen 0.2 (0.2-1.0) Ur Leukocyte Esterase Negative (Negative) Urine RBC 0-5 (0-5) /hpf Urine WBC 0-5 (0-5) /hpf Ur Squamous Epith Cells 0-5 (0-5) /hpf Urine Bacteria Rare (FEW) /hpf Urine Mucus Not seen (FEW) /hpf 01/15/21 Range/Units 22:45 WBC (3.98-10.04) K/mm3 RBC (3.98-5.22) M/mm3 Hgb (11.2-15.7) gm/dl Hct (34.1-44.9) % MCV (79.4-94.8) fl MCH (25.6-32.2) pg MCHC (32.2-35.5) g/dl RDW Std Deviation (36.4-46.3) fL Plt Count (182-369) K/mm3 MPV (9.4-12.3) fl Neut % (Auto) (34.0-71.1) % Lymph % (Auto) (19.3-51.7) % [place] % (Auto) (4.7-12.5) % Eos % (Auto) (0.7-5.8) Baso % (Auto) (0.1-1.2) % Neut # (Auto) (1.56-6.13) K/mm3 Lymph # (Auto) (1.18-3.74) K/mm3 [place] # (Auto) (0.24-0.36) K/mm3 Eos # (Auto) (0.04-0.36) K/mm3 Baso # (Auto) (0.01-0.08) K/mm3 Manual Slide Review Sodium 140 (136-145) mEq/L Potassium 3.8 (3.5-5.1) mEq/L Chloride 103 (98-107) mEq/L Carbon Dioxide 23 (21-32) mEq/L Anion Gap 17.8 H (5-15) BUN 10 (7-18) mg/dL Creatinine 0.7 (0.55-1.02) mg/dL Est Cr Clr Drug Dosing 90.14 mL/min Estimated GFR (MDRD) > 60 (>60) mL/min BUN/Creatinine Ratio 14.3 (14-18) Glucose 95 (74-106) mg/dL Calcium 9.7 (8.5-10.1) mg/dL Total Bilirubin 0.3 (0.2-1.0) mg/dL AST 19 (15-37) U/L ALT 31 (14-59) U/L Alkaline Phosphatase 67 (46-116) U/L C-Reactive Protein 0.4 (<1.0) mg/dL Total Protein 7.9 (6.4-8.2) g/dl Albumin 4.1 (3.4-5.0) g/dl Globulin 3.8 gm/dL Albumin/Globulin Ratio 1.1 (1-2) HCG, Qual (NEGATIVE) Urine Color (Yellow) Urine Appearance (Clear) Urine pH (5.0-8.0) Ur Specific [place] (1.005-1.030) Urine Protein (Negative) Urine Glucose (UA) (Negative) Urine Ketones (Negative) Urine Occult Blood (Negative) Urine Nitrite (Negative) Urine Bilirubin (Negative) Urine Urobilinogen (0.2-1.0) Ur Leukocyte Esterase (Negative) Urine RBC (0-5) /hpf Urine WBC (0-5) /hpf Ur Squamous Epith Cells (0-5) /hpf Urine Bacteria (FEW) /hpf Urine Mucus (FEW) /hpf Meds: Medications Discontinued Medications Generic Name Dose Route Start Last Admin Trade Name Freq PRN Reason Stop Dose Admin Ketorolac Tromethamine 30 mg 01/15/21 21:53 01/15/21 22:17 Ketorolac 30 Mg/Ml Sdv IVPUSH 01/15/21 21:54 30 mg ONETIME ONE Administration Ondansetron HCl 4 mg 01/15/21 23:01 01/15/21 23:07 Ondansetron 4 Mg/2 Ml Sdv IVPUSH 01/15/21 23:02 4 mg ONETIME ONE Administration Sodium Chloride 10 ml 01/15/21 21:46 01/15/21 22:17 Sodium Chloride 0.9% 10 Ml Syringe FLUSH 10 ml ASDIRECTED PRN Administration Keep Vein Open - Re-Assessments/Exams Free Text/Narrative Re-Assessment/Exam: 01/15/21 23:33 Hematology was significant for WBC slightly elevated at 13.46, hemoglobin 16.4, and a gap 17.8. Patient has had no vomiting or diarrhea. Patient states that when she was seen in the clinic this week, her white blood cells were elevated over 15 with no signs of infection. Discussed that I would recommend trying to increase her fluid intake to offset these changes in her lab values. She reports that she drinks numerous energy drinks per day. Discussed caffeine reduction as this is a diuretic. Results of the CT scan impression as follows: 1. Findings suggestive of mild enterocolitis and diarrheal state. No evidence of bowel obstruction, perforation, or abscess. 2. 3 mm nonobstructing right renal stone. No ureteral stone or hydronephrosis. 3. Very small fatty umbilical hernia with no evidence of bowel herniation or strangulation. Urinalysis was negative for infection. Discussed with patient that while there is no visible cause of her left lower quadrant/point discomfort, it is possible that she could have had a kidney stone which has since passed. A small ruptured ovarian cyst is also within the differential, although there was no free fluid visualized in the intraperitoneal space. She is feeling better with the medications given. Discussed possibility of transvaginal ultrasound, however she declined at this time. We will discharge her home. Discussed return precautions. Discharge instructions as documented. Departure - Departure Time of Disposition: 23:33 Disposition: Home, Self-Care 01 Condition: Good Clinical Impression: Abdominal pain Qualifiers: Abdominal location: left lower quadrant Qualified Code(s): R10.32 - Left lower quadrant pain - Discharge Information *PRESCRIPTION DRUG MONITORING PROGRAM REVIEWED*: No *COPY OF PRESCRIPTION DRUG MONITORING REPORT IN PATIENT GIANNA: No Instructions: Abdominal Pain, Adult, [id number] Referrals: Phoebe Townsend NP [Primary Care Provider] - Forms: ED Department Discharge Additional Instructions: You were seen in the emergency department today for evaluation of left flank pain yesterday and left lower quadrant/groin pain today. Work-up included blood work, urinalysis, and a CT scan of your abdomen pelvis. Results your work-up show that you were mildly dehydrated but were otherwise normal. Recommend that you increase your fluid intake and reduce your caffeine intake as this is a diuretic. While the exact cause of your discomfort was not able to be found, it is possible that you could have had a small kidney stone which has since passed or a small ruptured ovarian cyst which is not large enough to show fluid on the CT scan. Recommend routine Tylenol as needed for discomfort. Applying heat over the area of discomfort would also be beneficial. If you experience any new or worsening symptoms, please not hesitate to return to the emergency depa rtment, otherwise you may also follow-up in the clinic early next week. Sepsis Event Note (ED) - Evaluation Sepsis Screening Result: No Definite Risk - Focused Exam Vital Signs: Vital Signs Temp Pulse Resp BP Pulse Ox 01/15/21 23:45 96.8 F L 76 14 110/80 98 - My Orders Last 24 Hours: My Active Orders 01/15/21 21:46 Peripheral IV Insertion Adult [OM.PC] Stat - Assessment/Plan Last 24 Hours: My Active Orders 01/15/21 21:46 Peripheral IV Insertion Adult [OM.PC] Stat
[2021-01-15] MEDS ORDERED: Ondansetron 4 MG/2 ML SDV IVPUSH ONE (23:01)
[2021-01-16 00:03] VITALS: BP 110/80
--- NOTE | 2021-01-16 09:49 | CT ---
CT abdomen and pelvis Technique: Multiple axial sections were obtained from above the dome of the diaphragm inferiorly through the pubic symphysis. Intravenous and oral contrast was not utilized. Study has been performed as a ureteral stone protocol. Comparison: No prior abdominal or pelvic imaging is available. Findings: Small nonobstructing stone is noted within the right kidney measuring approximately 3 mm. Kidneys show no hydronephrosis. No ureteral dilatation or ureteral stone is seen. Visualized lung bases show nothing acute. Noncontrast appearance of the liver appears within normal limits. Spleen is normal. Adrenal glands show no nodule. Pancreas shows no discrete abnormality. Gallbladder contains no calcified gallstones. Abdominal aorta shows no aneurysm. No retroperitoneal adenopathy or mesenteric abnormalities are seen. Minimal fluid is seen within the distal small bowel which I believe is most likely incidental. No bowel wall thickening is appreciated. Appendix is felt to be visualized and is normal in size. No free fluid or inflammatory change is appreciated. No abdominal wall hernia is noted. Bone window settings were reviewed which show no acute osseous finding. Impression: 1. Small amount of fluid within the distal small bowel. No bowel wall thickening is seen and I believe this is most likely incidental. Please correlate. 2. No ureteral dilatation or ureteral calculi are seen. Small nonobstructing stone is noted within the right kidney. 3. No additional abnormality is appreciated on CT study of the abdomen and pelvis performed without IV or oral contrast. Diagnostic code #2 I mostly agree with preliminary report from [facility], finalized on 01/16/21, 12:12 AM CDT
== END 2021-01-15 23:45 | disposition home or self-care (01) ==
LOC: JD.ED 21:24
DX: R10.32 Left lower quadrant pain (principal); D72.829 Elevated white blood cell count, unspecified; Z72.0 Tobacco use
CPT/HCPCS: 36415; 74176; 80053; 81001; 84703; 85025; 86140; 96374; 96375; 99284; J1885; J2405

== ENCOUNTER 2021-02-27 21:22 | Emergency (ER) | payer OTHER ==
[2021-02-27] MEDS ORDERED: Sodium Chloride 0.9% 1,000 ML IV SCH (21:45)
[2021-02-27] MEDS ORDERED: Ondansetron 4 MG/2 ML SDV IVPUSH ONE ×2 (21:45→22:55)
[2021-02-27] MEDS ORDERED: HYDROmorphone 1 MG/ML Syringe IVPUSH STA (21:45)
--- NOTE | 2021-02-27 21:53 | EDM.PDOC ---
ED HPI GENERAL MEDICAL PROBLEM - General Chief Complaint: Abdominal Pain Stated Complaint: RT SIDE PAIN Time Seen by Provider: 02/27/21 21:33 Source of Information: Reports: Patient, Family () History Limitations: Reports: No Limitations - History of Present Illness INITIAL COMMENTS - FREE TEXT/NARRATIVE: Mrs. Warner is a pleasant 41-year-old woman who now presents to the ED stating that she had dysuria yesterday, although none today. She then developed right lower quadrant and right flank pain around 01:00 this morning. She states that the pain lasted about 2 hours, then resolved. She states that she had only slight discomfort today, but that the pain returned around 21:20 this evening. She describes the pain is sharp in character. She denies identifying any modifiers, however, she states that going over bumps in the road on the way to the ED was painful. No associated fever, nausea, vomiting, constipation, or diarrhea. No prior similar symptoms. The patient has a history of kidney stones, but states that her current pain is different than that. Her last oral intake was last night; she states that she has not had anything to eat today at all. Her LMP was about 7 years ago; she is on Depo-Provera. Here in the ED, the patient is found to be hemodynamically stable, afebrile, saturating 97% on room air. She appears to be relatively comfortable, in no acute distress. Prior to yesterday, the patient denies having a recent fever, chills, sore throat, ear pain, nasal or sinus congestion, cough, dyspnea, chest pain, palpitations, nausea, vomiting, constipation, diarrhea, abdominal pain, urinary symptoms, recent weight gain or weight loss, recent bloody bowel movements or black bowel movements, recent joint aches, headaches, or rashes. I reviewed the PMHx/PSHx/SocHx, which was reviewed with the patient by the RN. The patient's PCP is Phoebe Townsend DNP, at the [facility]. Right Abdomen Pain Score (Numeric/FACES): 9 - Related Data Allergies Allergy/AdvReac Type Severity Reaction Status Date / Time No Known Allergies Allergy Verified 01/15/21 21:45 Home Meds: Home Meds LORazepam [Ativan] 1 mg PO TID PRN 12/21/18 [History] Escitalopram Oxalate [Lexapro] 10 mg PO DAILY 02/27/21 [History] Past Medical History HEENT History: Reports: Impaired Vision Genitourinary History: Reports: Renal Calculus Psychiatric History: Reports: Anxiety, Depression - Infectious Disease History Infectious Disease History: Reports: Chicken Pox - Past Surgical History Female Surgical History: Reports: Section, Tubal Ligation Social & Family History - Family History Family Medical History: No Pertinent Family History - Tobacco Use Tobacco Use Status *Q: Current Every Day Tobacco User Years of Tobacco use: 23 Packs/Tins Daily: 2 - Caffeine Use Caffeine Use: Reports: Energy Drinks, Soda - Recreational Drug Use Recreational Drug Use: No - Living Situation & Occupation Living situation: Reports: , with Spouse, with Family (3 sons) Occupation: Unemployed ED ROS GENERAL - Review of Systems Review Of Systems: Comprehensive ROS is negative, except as noted in HPI. ED EXAM, GI/ABD - Physical Exam Exam: See Below Exam Limited By: No Limitations General Appearance: Alert, WD/WN, No Apparent Distress Eyes: Bilateral: Normal Appearance, EOMI Ears: Normal External Exam, Hearing Grossly Normal Nose: Normal Inspection Throat/Mouth: Normal Inspection, Normal Lips, Normal Voice, No Airway Compromise Head: Atraumatic, Normocephalic Neck: Normal Inspection, Full Range of Motion Respiratory/Chest: No Respiratory Distress, Lungs Clear, Normal Breath Sounds, No Accessory Muscle Use Cardiovascular: Normal Peripheral Pulses, Regular Rate, Rhythm, No Edema, No Gallop, No JVD, No Murmur, No Rub GI/Abdominal Exam: Normal Bowel Sounds (active!), Soft, No Organomegaly, No Distention, No Abnormal Bruit, No Mass, Tender (Primarily the right upper quadrant, but also considerably tender in the right lower quadrant, with pain felt on the right side of her abdomen with palpation of the left. Questionable true Hough's sign.) Back Exam: Normal Inspection, Full Range of Motion, CVA Tenderness (R). No: CVA Tenderness (L) Extremities: Normal Inspection, Normal Range of Motion, No Pedal Edema, Normal Capillary Refill Neurological: Alert, Oriented, Normal Cognition, No Motor/Sensory Deficits Psychiatric: Normal Affect Skin Exam: Warm, Dry, Intact, Normal Color, No Rash Course - Vital Signs Last Recorded V/S: Last Vital Signs Temp 36.2 C 02/27/21 21:36 Pulse 78 05/09/21 21:36 Resp 20 02/27/21 21:36 BP 118/71 02/27/21 21:36 Pulse Ox 97 02/27/21 21:36 - Orders/Labs/Meds Orders: Active Orders 24 hr Category Date Time Status Abdomen Ltd [US] Stat Exams 02/27/21 21:47 Taken Abdomen Pelvis w Cont [CT] Stat Exams 02/27/21 21:45 Taken Sodium Chloride 0.9% [Normal Saline] 1,000 ml Med 02/27/21 21:45 Active IV ASDIRECTED Medication Orders Sodium Chloride (Normal Saline) 1,000 mls @ 150 mls/hr IV ASDIRECTED LEODAN Last Admin: 02/27/21 21:57 Dose: 150 mls/hr Documented by: LAURO Labs: Laboratory Tests 02/27/21 02/27/21 02/27/21 Range/Units 21:45 21:45 22:00 WBC 12.02 H (3.98-10.04) K/mm3 RBC 5.17 (3.98-5.22) M/mm3 Hgb 16.3 H (11.2-15.7) gm/dl Hct 47.5 H (34.1-44.9) % MCV 91.9 (79.4-94.8) fl MCH 31.5 (25.6-32.2) pg MCHC 34.3 (32.2-35.5) g/dl RDW Std Deviation 49.1 H (36.4-46.3) fL Plt Count 347 (182-369) K/mm3 MPV 8.9 L (9.4-12.3) fl Neutrophils % (Manual) 70 H (40-60) % Band Neutrophils % 0 (0-10) % Lymphocytes % (Manual) 22 (20-40) % Atypical Lymphs % 0 % Monocytes % (Manual) 8 (2-10) % Eosinophils % (Manual) 0 L (0.7-5.8) % Basophils % (Manual) 0 L (0.1-1.2) Platelet Estimate Adequate RBC Morph Comment Normal Sodium (136-145) mEq/L Potassium (3.5-5.1) mEq/L Chloride (98-107) mEq/L Carbon Dioxide (21-32) mEq/L Anion Gap (5-15) BUN (7-18) mg/dL Creatinine (0.55-1.02) mg/dL Est Cr Clr Drug Dosing mL/min Estimated GFR (MDRD) (>60) mL/min BUN/Creatinine Ratio (14-18) Glucose (74-106) mg/dL Calcium (8.5-10.1) mg/dL Magnesium (1.8-2.4) mg/dl Total Bilirubin (0.2-1.0) mg/dL AST (15-37) U/L ALT (14-59) U/L Alkaline Phosphatase (46-116) U/L Total Protein (6.4-8.2) g/dl Albumin (3.4-5.0) g/dl Globulin gm/dL Albumin/Globulin Ratio (1-2) Lipase (73-393) U/L Urine Color Yellow (Yellow) Urine Appearance Clear (Clear) Urine pH 7.5 (5.0-8.0) Ur Specific [place] 1.015 (1.005-1.030) Urine Protein Negative (Negative) Urine Glucose (UA) Negative (Negative) Urine Ketones Negative (Negative) Urine Occult Blood Trace-intact H (Negative) Urine Nitrite Negative (Negative) Urine Bilirubin Negative (Negative) Urine Urobilinogen 0.2 (0.2-1.0) Ur Leukocyte Esterase Negative (Negative) Urine RBC 5-10 H (0-5) /hpf Urine WBC 0-5 (0-5) /hpf Ur Squamous Epith Cells 0-5 (0-5) /hpf Urine Bacteria Occasional (FEW) /hpf Urine Mucus Not seen (FEW) /hpf Urine HCG, Qual Negative (NEGATIVE) SARS-CoV-2 RNA ([place]) (NEGATIVE) 02/27/21 02/27/21 Range/Units 22:00 22:00 WBC (3.98-10.04) K/mm3 RBC (3.98-5.22) M/mm3 Hgb (11.2-15.7) gm/dl Hct (34.1-44.9) % MCV (79.4-94.8) fl MCH (25.6-32.2) pg MCHC (32.2-35.5) g/dl RDW Std Deviation (36.4-46.3) fL Plt Count (182-369) K/mm3 MPV (9.4-12.3) fl Neutrophils % (Manual) (40-60) % Band Neutrophils % (0-10) % Lymphocytes % (Manual) (20-40) % Atypical Lymphs % % Monocytes % (Manual) (2-10) % Eosinophils % (Manual) (0.7-5.8) % Basophils % (Manual) (0.1-1.2) Platelet Estimate RBC Morph Comment Sodium 140 (136-145) mEq/L Potassium 4.0 (3.5-5.1) mEq/L Chloride 103 (98-107) mEq/L Carbon Dioxide 27 (21-32) mEq/L Anion Gap 14.0 (5-15) BUN 10 (7-18) mg/dL Creatinine 0.8 (0.55-1.02) mg/dL Est Cr Clr Drug Dosing 81.53 mL/min Estimated GFR (MDRD) > 60 (>60) mL/min BUN/Creatinine Ratio 12.5 L (14-18) Glucose 90 (74-106) mg/dL Calcium 9.6 (8.5-10.1) mg/dL Magnesium 3.1 H (1.8-2.4) mg/dl Total Bilirubin 0.3 (0.2-1.0) mg/dL AST 19 (15-37) U/L ALT 39 (14-59) U/L Alkaline Phosphatase 72 (46-116) U/L Total Protein 8.1 (6.4-8.2) g/dl Albumin 4.1 (3.4-5.0) g/dl Globulin 4.0 gm/dL Albumin/Globulin Ratio 1.0 (1-2) Lipase 115 (73-393) U/L Urine Color (Yellow) Urine Appearance (Clear) Urine pH (5.0-8.0) Ur Specific [place] (1.005-1.030) Urine Protein (Negative) Urine Glucose (UA) (Negative) Urine Ketones (Negative) Urine Occult Blood (Negative) Urine Nitrite (Negative) Urine Bilirubin (Negative) Urine Urobilinogen (0.2-1.0) Ur Leukocyte Esterase (Negative) Urine RBC (0-5) /hpf Urine WBC (0-5) /hpf Ur Squamous Epith Cells (0-5) /hpf Urine Bacteria (FEW) /hpf Urine Mucus (FEW) /hpf Urine HCG, Qual (NEGATIVE) SARS-CoV-2 RNA ([place]EL) Negative (NEGATIVE) Meds: Medications Generic Name Dose Route Start Last Admin Trade Name Freq PRN Reason Stop Dose Admin Sodium Chloride 1,000 mls @ 150 mls/hr 02/27/21 21:45 02/27/21 21:57 Normal Saline IV 150 mls/hr ASDIRECTED LEODAN Administration Discontinued Medications Generic Name Dose Route Start Last Admin Trade Name Daronq PRN Reason Stop Dose Admin Diatrizoate Meglum/Diatrizoate Sod 90 ml 02/27/21 22:28 02/27/21 23:46 Diatrizoate Meglumine/Diatrizoate Sodium 37% 120 Ml Bottle PO 02/27/21 22:29 90 ml ONETIME ONE Administration Hydromorphone HCl 0.5 mg 02/27/21 21:45 02/27/21 21:57 Hydromorphone 1 Mg/Ml Syringe IVPUSH 02/27/21 21:46 0.5 mg ONETIME STA Administration Iopamidol 100 ml 02/27/21 22:28 02/27/21 23:46 Iopamidol 612 Mg/Ml 100 Ml Bottle IVPUSH 02/27/21 22:29 100 ml ONETIME ONE Administration Ondansetron HCl 4 mg 02/27/21 21:45 02/27/21 21:57 Ondansetron 4 Mg/2 Ml Sdv IVPUSH 02/27/21 21:46 4 mg ONETIME ONE Administration Ondansetron HCl 4 mg 02/27/21 22:55 02/27/21 23:12 Ondansetron 4 Mg/2 Ml Sdv IVPUSH 02/27/21 22:56 4 mg ONETIME ONE Administration Sodium Chloride 10 ml 02/27/21 22:28 02/27/21 23:46 Sodium Chloride 0.9% 10 Ml Syringe FLUSH 02/27/21 22:29 10 ml ONETIME ONE Administration - Re-Assessments/Exams Free Text/Narrative Re-Assessment/Exam: 02/27/21 21:50 As above, the patient had dysuria yesterday, then developed right lower quadrant and right flank pain early this morning, which lasted about 2 hours, but then she was relatively comfortable throughout today until about 30 minutes ago. She describes the pain as sharp, and while she says she has not identified any modifiers, she also reports that she had increased pain when going over bumps in the road on her way to the ED. No associated fever, nausea, vomiting, constipation, or diarrhea. No dysuria today. On examination, she has increased pain to the right side of her abdomen with palpation of the left side, and while she has considerable tenderness to palpation of her right lower quadrant, she has even greater tenderness to palpation of her right upper quadrant with a questionable true Hough's sign. She also has right CVA tenderness. The etiology of the patient's symptoms is not immediately clear; I think it is most likely that she is suffering from acute cholecystitis, however, appendicitis or a right-sided ureterolith are certainly on the differential, as are a ruptured ovarian cyst, mesenteric adenitis, or even epiploic appendagitis. I have ordered a work-up that includes an ultrasound of the right upper quadrant, to be followed by a CT of the abdomen and pelvis with oral and IV contrast. I have also ordered several blood tests, urinalysis, and urine test. In the meantime, the patient will be given IV Dilaudid, IV Zofran, and IV fluid. 02/27/21 23:17 Ultrasound of the right upper quadrant is read by [facility] as: 1. No acute pathologic abnormality. 2. Remainder of findings described as above. The patient's CBC is remarkable for mild leukocytosis of 12.02, but with 0% bandemia. Her H/H are elevated at 16.3/47.5, with remainder of her CBC being unremarkable. Her CMP is unremarkable. Her magnesium level is mildly elevated at 3.1. Her lipase level is within normal limits at 115. Her urinalysis is unremarkable. Her urine test is negative. 02/27/21 23:49 CT of the abdomen and pelvis with oral and IV contrast is read by [facility] as: 1. No acute pathologic abnormality. 2. Remainder of findings described as above. 02/27/21 23:53 Test results discussed with the patient and her . As above, today's work-up is entirely unremarkable, and does not explain the cause of her pain. Based on her history and physical exam, however, I am concerned that she may be suffering from acute cholecystitis, but not bad enough to be able to be seen on our studies. Further evaluation, such as a HIDA scan would likely be beneficial, therefore I will refer her to Dr. Loyd for further evaluation. In the meantime, I recommended that she eat a low-fat a diet as possible. The patient is agreeable. Departure - Departure Time of Disposition: 23:54 Disposition: Home, Self-Care 01 Condition: Good Clinical Impression: Right-sided abdominal pain of unknown etiology - Discharge Information *PRESCRIPTION DRUG MONITORING PROGRAM REVIEWED*: Not Applicable *COPY OF PRESCRIPTION DRUG MONITORING REPORT IN PATIENT GIANNA: Not Applicable Referrals: Phoebe Townsend NP [Primary Care Provider] - Gen Loyd MD [Physician] - Forms: ED Department Discharge Additional Instructions: You were seen in the emergency room after developing right-sided abdominal and back pain early this morning, then again this evening. Work-up in the ER included several blood tests, a urinalysis, a urine test, an ultrasound of your upper right abdomen, and a CT of your abdomen and pelvis with oral and IV contrast. Your entire work-up was unremarkable, and does not explain the cause of your pain, however, does rule out any serious emergencies. Based on your history, physical exam, and ER tests, we are concerned that your pain may be caused by a sick gallbladder, a condition known as biliary colic. Further evaluation is necessary. We recommend that you eat as a low-fat a diet as possible, as eating fat with a sick gallbladder will cause pain. We recommend that you follow-up with the Surgeon Dr. Gen Loyd, for further evaluation. If any other problems, please do not hesitate to return to the ER. Sepsis Event Note (ED) - Evaluation Sepsis Screening Result: No Definite Risk - Focused Exam Vital Signs: Vital Signs Temp Pulse Resp BP Pulse Ox 02/27/21 21:36 36.2 C 78 20 118/71 97 - My Orders Last 24 Hours: My Active Orders 02/27/21 21:45 Abdomen Pelvis w Cont [CT] Stat Sodium Chloride 0.9% [Normal Saline] 1,000 ml IV ASDIRECTED 02/27/21 21:47 Abdomen Ltd [US] Stat - Assessment/Plan Last 24 Hours: My Active Orders 02/27/21 21:45 Abdomen Pelvis w Cont [CT] Stat Sodium Chloride 0.9% [Normal Saline] 1,000 ml IV ASDIRECTED 02/27/21 21:47 Abdomen Ltd [US] Stat
[2021-02-27] MEDS ORDERED: Iopamidol 612 MG/ML 100 ML Bottle IVPUSH ONE (22:28)
[2021-02-27] MEDS ORDERED: Diatrizoate Meglumine/Diatrizoate Sodium 37% 120 ML Bottle PO ONE (22:28)
[2021-02-27] MEDS ORDERED: Sodium Chloride 0.9% 10 ML Syringe FLUSH ONE (22:28)
[2021-02-28 00:07] VITALS: BP 120/68; PULSE 67
--- NOTE | 2021-02-28 07:07 | US ---
Limited abdominal ultrasound: Multiple real-time images were obtained of the upper right abdomen. Comparison: No abdominal ultrasound is available. Findings: Liver shows no focal abnormality. Gallbladder contains no shadowing gallstones. No gallbladder wall distention or biliary duct dilatation is seen. Right kidney shows no hydronephrosis or mass. Right kidney has a length of 9.6 cm. Proximal aorta shows no aneurysm. Pancreas shows no discrete abnormality. Inferior vena cava is patent. Main portal vein shows normal hepatopedal flow. Impression: 1. No abnormality is identified on right upper quadrant abdominal ultrasound. Diagnostic code #1 I agree with preliminary report from [facility] finalized on 02/28/21, 12:01 AM CDT, code 1
--- NOTE | 2021-02-28 07:15 | CT ---
CT abdomen and pelvis Technique: Multiple axial sections were obtained from above the dome of the diaphragm inferiorly through the pubic symphysis. Intravenous and oral contrast was utilized. Delayed images were also obtained through the bladder. Reconstructed coronal and sagittal images were obtained. Comparison: Prior right upper quadrant abdominal ultrasound performed earlier on the same day as well as prior CT abdomen and pelvis study performed on 01/15/21. Findings: Visualized lung bases show nothing acute. Liver contains no focal parenchymal abnormality. Gallbladder contains no calcified gallstones. Spleen appears normal. Pancreas shows no discrete abnormality. Adrenal glands show no nodule. Kidneys show symmetric contrast enhancement. Right kidney shows a small nonobstructing stone inferiorly which is stable from prior CT exam. Abdominal aorta shows no aneurysm. No retroperitoneal adenopathy or mesenteric abnormalities are seen. Appendix is seen which is normal in size. No pelvic mass or adenopathy is identified. Bone window settings were reviewed which appear within normal limits for the patient's. Delayed images show contrast within the bladder. Impression: 1. Small nonobstructing stone within the inferior right kidney. 2. Nothing acute is identified on CT study of the abdomen and pelvis. Diagnostic code #2 I agree with preliminary report from [facility] finalized on 02/28/21, 12:47 AM CDT, code 1
== END 2021-02-28 00:07 | disposition home or self-care (01) ==
LOC: JD.ED 21:22
DX: R10.31 Right lower quadrant pain (principal); Z72.0 Tobacco use; Z20.822 Contact with and (suspected) exposure to COVID-19
CPT/HCPCS: 36415; 74177; 76705; 80053; 81001; 81025; 83690; 83735; 85007; 85027; 87635; 96374; 96375; 96376; 99284; J1170; J2405; J7030; Q9963; Q9967; 99283; U0002

== ENCOUNTER 2021-06-23 20:07 | Emergency (ER) | payer OTHER ==
[2021-06-23] MEDS ORDERED: Lactated Ringers 1,000 ML IV ONE (20:43)
[2021-06-23] MEDS ORDERED: Sodium Chloride 0.9% 10 ML Syringe FLUSH PRN (20:43)
--- NOTE | 2021-06-23 21:59 | EDM.PDOC ---
ED HPI GENERAL MEDICAL PROBLEM - General Chief Complaint: Syncope Stated Complaint: DIZZY/SYNCOPE Time Seen by Provider: 06/23/21 20:51 Source of Information: Reports: Patient, RN Notes Reviewed History Limitations: Reports: No Limitations - History of Present Illness INITIAL COMMENTS - FREE TEXT/NARRATIVE: Patient is a 41-year-old female presenting to the emergency department with complaints of intermittent dizziness with "blacking out ". Symptoms have been present for approximately last week. Reports that she has had 2 episodes of where she fell due to the symptoms. This occurred on Sunday and Sunday of this week. She did not hit her head or fully lose consciousness. Symptoms are worse when she is up and walking. States sometimes if she is laying down and she closes her eyes it feels like the room is spinning. Denies any recent head injuries. She is had no headache or vision changes. Denies nausea vomiting or diarrhea. Reports that she went through a "depressive episode "about a week ago and did not eat or drink anything for 9 days. She has no chest pain or shortness of breath. She has had problems with chronic fluid in her ears and reports that her ears are slightly plugged at this time. Has tried Flonase on a couple of occasions with little relief. Primary care provider recommended that she take Zyrtec, however she has not been taking that recently. - Related Data Allergies Allergy/AdvReac Type Severity Reaction Status Date / Time No Known Allergies Allergy Verified 06/23/21 20:37 Home Meds: Home Meds LORazepam [Ativan] 1 mg PO TID PRN 12/21/18 [History] Escitalopram Oxalate [Lexapro] 10 mg PO DAILY 02/27/21 [History] Meclizine [Antivert] 25 mg PO Q8H PRN #30 tab 06/23/21 [Rx] Past Medical History - Past Health History Medical/Surgical History: Denies Medical/Surgical History HEENT History: Reports: Impaired Vision Genitourinary History: Reports: Renal Calculus EXECUTOR OF ESTATE History: Reports: Other EXECUTOR OF ESTATE History: STATES HX OF HEAVY PERIODS, STATES GETS DEPO. WITH LAST CHILD. Psychiatric History: Reports: Anxiety, Depression - Infectious Disease History Infectious Disease History: Reports: Chicken Pox - Past Surgical History Female Surgical History: Reports: Section, Tubal Ligation Social & Family History - Family History Family Medical History: No Pertinent Family History - Tobacco Use Tobacco Use Status *Q: Current Every Day Tobacco User Years of Tobacco use: 23 Packs/Tins Daily: 1.5 - Caffeine Use Caffeine Use: Reports: Energy Drinks Caffeine Use Comment: sometimes two per day, states "I try not to go over 6. I only had four today." - Recreational Drug Use Recreational Drug Use: No - Living Situation & Occupation Living situation: Reports: , with Spouse, with Family (3 sons) Occupation: Unemployed ED ROS GENERAL - Review of Systems Review Of Systems: Comprehensive ROS is negative, except as noted in HPI. ED EXAM, DIZZINESS - Physical Exam Exam: See Below Exam Limited By: No Limitations General Appearance: Alert, WD/WN, No Apparent Distress Eye Exam: Bilateral Eye: PERRL Ears: Normal External Exam, Hearing Grossly Normal, TM Fluid (Bilaterally) Respiratory/Chest: No Respiratory Distress, Lungs Clear, Normal Breath Sounds, No Accessory Muscle Use, Chest Non-Tender Cardiovascular: Normal Peripheral Pulses, Regular Rate, Rhythm, No Edema, No Gallop, No JVD, No Murmur, No Rub Neurological: Alert, Normal Mood/Affect, Normal Dorsiflexion, CN II-XII Intact, Normal Plantar Flexion, Normal Gait, Normal Reflexes, No Motor/Sensory Deficits, Oriented x 3 Psychiatric: Normal Affect, Normal Mood Skin Exam: Warm, Dry, Intact, Normal Color, No Rash #1 Interpretation EKG Date: 06/23/21 Time: 21:23 Rhythm: NSR Rate (Beats/Min): 73 [place]: Normal P-Wave: Present QRS: Normal ST-T: Normal QT: Normal MA/PQ Interval: Borderline short Course - Vital Signs Last Recorded V/S: Last Vital Signs Temp 98.5 F 06/23/21 20:32 Pulse 69 06/23/21 22:14 Resp 20 06/23/21 22:14 BP 104/74 06/23/21 22:14 Pulse Ox 96 06/23/21 22:14 Orthostatic Blood Pressure [ 118/76 Standing] Orthostatic Blood Pressure [ 123/74 Sitting] Orthostatic Blood Pressure [ 115/71 Supine] - Orders/Labs/Meds Orders: Active Orders 24 hr Category Date Time Status Peripheral IV Care [RC] . DIRECTED Care 06/23/21 20:43 Active Chest 2V [CR] Stat Exams 06/23/21 20:52 Taken Sodium Chloride 0.9% [Saline Flush] Med 06/23/21 20:43 Active 10 ml FLUSH ASDIRECTED PRN Peripheral IV Insertion Adult [OM.PC] Stat Oth 06/23/21 20:43 Ordered EKG 12 Lead [EK] Stat Ther 06/23/21 20:43 Ordered Medication Orders Sodium Chloride (Sodium Chloride 0.9% 10 Ml Syringe) 10 ml FLUSH ASDIRECTED PRN PRN Reason: Keep Vein Open Last Admin: 06/23/21 22:16 Dose: 10 ml Documented by: GREGORIO Labs: Laboratory Tests 06/23/21 06/23/21 06/23/21 Range/Units 21:00 21:00 21:00 WBC 14.77 H (3.98-10.04) K/mm3 RBC 4.83 (3.98-5.22) M/mm3 Hgb 15.0 (11.2-15.7) gm/dl Hct 44.7 (34.1-44.9) % MCV 92.5 (79.4-94.8) fl MCH 31.1 (25.6-32.2) pg MCHC 33.6 (32.2-35.5) g/dl RDW Std Deviation 48.7 H (36.4-46.3) fL Plt Count 313 (182-369) K/mm3 MPV 9.2 L (9.4-12.3) fl Neut % (Auto) 69.6 (34.0-71.1) % Lymph % (Auto) 22.0 (19.3-51.7) % [place] % (Auto) 6.4 (4.7-12.5) % Eos % (Auto) 1.4 (0.7-5.8) Baso % (Auto) 0.3 (0.1-1.2) % Neut # (Auto) 10.28 H (1.56-6.13) K/mm3 Lymph # (Auto) 3.25 (1.18-3.74) K/mm3 [place] # (Auto) 0.95 H (0.24-0.36) K/mm3 Eos # (Auto) 0.21 (0.04-0.36) K/mm3 Baso # (Auto) 0.04 (0.01-0.08) K/mm3 D-Dimer, Quantitative 0.35 (0.19-0.50) mg/L Sodium 142 (136-145) mEq/L Potassium 4.0 (3.5-5.1) mEq/L Chloride 107 (98-107) mEq/L Carbon Dioxide 25 (21-32) mEq/L Anion Gap 14.0 (5-15) BUN 16 (7-18) mg/dL Creatinine 0.7 (0.55-1.02) mg/dL Est Cr Clr Drug Dosing 93.17 mL/min Estimated GFR (MDRD) > 60 (>60) mL/min BUN/Creatinine Ratio 22.9 H (14-18) Glucose 89 (70-99) mg/dL Calcium 9.4 (8.5-10.1) mg/dL Magnesium 2.3 (1.8-2.4) mg/dL Total Bilirubin 0.1 L (0.2-1.0) mg/dL AST 17 (15-37) U/L ALT 35 (14-59) U/L Alkaline Phosphatase 78 (46-116) U/L Troponin I < 0.017 (0.00-0.056) ng/mL Total Protein 7.4 (6.4-8.2) g/dl Albumin 3.8 (3.4-5.0) g/dl Globulin 3.6 gm/dL Albumin/Globulin Ratio 1.1 (1-2) Urine Color (Yellow) Urine Appearance (Clear) Urine pH (5.0-8.0) Ur Specific [place] (1.005-1.030) Urine Protein (Negative) Urine Glucose (UA) (Negative) Urine Ketones (Negative) Urine Occult Blood (Negative) Urine Nitrite (Negative) Urine Bilirubin (Negative) Urine Urobilinogen (0.2-1.0) Ur Leukocyte Esterase (Negative) Urine RBC (0-5) /hpf Urine WBC (0-5) /hpf Ur Squamous Epith Cells (0-5) /hpf Urine Bacteria (FEW) /hpf Urine Mucus (FEW) /hpf SARS-CoV-2 RNA ([place]) (NEGATIVE) 06/23/21 06/23/21 Range/Units 21:20 21:55 WBC (3.98-10.04) K/mm3 RBC (3.98-5.22) M/mm3 Hgb (11.2-15.7) gm/dl Hct (34.1-44.9) % MCV (79.4-94.8) fl MCH (25.6-32.2) pg MCHC (32.2-35.5) g/dl RDW Std Deviation (36.4-46.3) fL Plt Count (182-369) K/mm3 MPV (9.4-12.3) fl Neut % (Auto) (34.0-71.1) % Lymph % (Auto) (19.3-51.7) % [place] % (Auto) (4.7-12.5) % Eos % (Auto) (0.7-5.8) Baso % (Auto) (0.1-1.2) % Neut # (Auto) (1.56-6.13) K/mm3 Lymph # (Auto) (1.18-3.74) K/mm3 [place] # (Auto) (0.24-0.36) K/mm3 Eos # (Auto) (0.04-0.36) K/mm3 Baso # (Auto) (0.01-0.08) K/mm3 D-Dimer, Quantitative (0.19-0.50) mg/L Sodium (136-145) mEq/L Potassium (3.5-5.1) mEq/L Chloride (98-107) mEq/L Carbon Dioxide (21-32) mEq/L Anion Gap (5-15) BUN (7-18) mg/dL Creatinine (0.55-1.02) mg/dL Est Cr Clr Drug Dosing mL/min Estimated GFR (MDRD) (>60) mL/min BUN/Creatinine Ratio (14-18) Glucose (70-99) mg/dL Calcium (8.5-10.1) mg/dL Magnesium (1.8-2.4) mg/dL Total Bilirubin (0.2-1.0) mg/dL AST (15-37) U/L ALT (14-59) U/L Alkaline Phosphatase (46-116) U/L Troponin I (0.00-0.056) ng/mL Total Protein (6.4-8.2) g/dl Albumin (3.4-5.0) g/dl Globulin gm/dL Albumin/Globulin Ratio (1-2) Urine Color Yellow (Yellow) Urine Appearance Clear (Clear) Urine pH 7.0 (5.0-8.0) Ur Specific [place] 1.015 (1.005-1.030) Urine Protein Negative (Negative) Urine Glucose (UA) Negative (Negative) Urine Ketones Negative (Negative) Urine Occult Blood Trace-intact H (Negative) Urine Nitrite Negative (Negative) Urine Bilirubin Negative (Negative) Urine Urobilinogen 0.2 (0.2-1.0) Ur Leukocyte Esterase Negative (Negative) Urine RBC 0-5 (0-5) /hpf Urine WBC Not seen (0-5) /hpf Ur Squamous Epith Cells Not seen (0-5) /hpf Urine Bacteria Not seen (FEW) /hpf Urine Mucus Rare (FEW) /hpf SARS-CoV-2 RNA ([place]) Negative (NEGATIVE) Meds: Medications Generic Name Dose Route Start Last Admin Trade Name Freq PRN Reason Stop Dose Admin Sodium Chloride 10 ml 06/23/21 20:43 06/23/21 22:16 Sodium Chloride 0.9% 10 Ml Syringe FLUSH 10 ml ASDIRECTED PRN Administration Keep Vein Open Discontinued Medications Generic Name Dose Route Start Last Admin Trade Name Freq PRN Reason Stop Dose Admin Lactated Ringer's 1,000 mls @ 999 mls/hr 06/23/21 20:43 06/23/21 21:39 Ringers, Lactated IV 06/23/21 21:43 999 mls/hr .BOLUS ONE Administration Meclizine HCl 25 mg 06/23/21 22:44 06/23/21 22:54 Meclizine 25 Mg Tab.Chew PO 06/23/21 22:45 25 mg NOW STA Administration - Re-Assessments/Exams Free Text/Narrative Re-Assessment/Exam: Patient is a 41-year-old female presenting to the emergency department with complaints of intermittent episodes of dizziness and "blacking out ". She has had 2 falls associated with this but denies any loss of consciousness. Did not hit her head. She has got no headache or vision changes. Denies nausea or vomiting. Exam is unremarkable. Orthostatic vital signs completed on triage do not show orthostasis. I have ordered 1 L bolus of IV fluids as well as blood work, urinalysis, chest x-ray, EKG, and Covid test 06/23/21 22:41 Hematology is significant for WBC elevated 14.77. Is otherwise unremarkable. EKG shows a normal sinus rhythm at 73 with a borderline shortened MA interval. Is otherwise unremarkable. Chest x-ray shows no acute abnormalities. Discussed with patient that symptoms may be related to vertigo, however I would recommend a Holter monitor to rule out any cardiac arrhythmias. She does not want a Holter monitor at this time. She would like to try the meclizine. I will give a dose of meclizine this evening and send prescription to clinic pharmacy. Discussed with patient that her symptoms should worsen or she develops any new symptoms of concern, she should return to the emergency department. I would recommend follow-up with her primary care provider next week. Discharge instructions as documented. Departure - Departure Time of Disposition: 22:43 Disposition: Home, Self-Care 01 Condition: Good Clinical Impression: Dizziness - Discharge Information *PRESCRIPTION DRUG MONITORING PROGRAM REVIEWED*: No *COPY OF PRESCRIPTION DRUG MONITORING REPORT IN PATIENT GIANNA: No Prescriptions: Meclizine [Antivert] 25 mg PO Q8H PRN #30 tab PRN Reason: Dizziness Instructions: Dizziness, [id number] Referrals: Phoebe Townsend NP [Primary Care Provider] - Forms: ED Department Discharge Additional Instructions: You were seen in the emergency department this evening for intermittent episodes of dizziness over the last few days. Work-up included blood work, urinalysis, EKG, chest x-ray, Covid test. Results of your work-up were found to be normal. While in the ER, you received IV fluids and meclizine for treatment of possible vertigo. It was recommended that you go home on a 48-hour monitoring manager, however you declined this recommend increase fluid intake. Use the meclizine as prescribed for dizzy episodes. If symptoms should worsen anyway, recommend return to the emergency department. Follow-up with your primary care provider next week. Sepsis Event Note (ED) - Focused Exam Vital Signs: Vital Signs Temp Pulse Resp BP BP Pulse Ox 06/23/21 22:14 69 20 104/74 96 06/23/21 21:40 100 16 108/76 98 06/23/21 20:32 98.5 F 81 16 116/72 96 - My Orders Last 24 Hours: My Active Orders 06/23/21 20:52 Chest 2V [CR] Stat - Assessment/Plan Last 24 Hours: My Active Orders 06/23/21 20:52 Chest 2V [CR] Stat
[2021-06-23 22:15] VITALS: BP 104/74; PULSE 69
--- NOTE | 2021-06-24 10:29 | CR ---
Chest: 2 views of the chest were obtained. Comparison: Prior chest x-ray of 12/21/18. Heart size and mediastinum are normal. Diaphragms are slightly flattened on the lateral view. Lungs otherwise are clear with no acute parenchymal change. Bony structures are within normal limits. Impression: 1. Diaphragms are flattened on the lateral view. Please correlate if patient is a smoker or has asthma. 2. Nothing acute is otherwise seen on 2 view chest x-ray. Diagnostic code #1
== END 2021-06-23 23:01 | disposition home or self-care (01) ==
LOC: JD.ED 20:07
DX: R42 Dizziness and giddiness (principal); Z72.0 Tobacco use; Z20.822 Contact with and (suspected) exposure to COVID-19
CPT/HCPCS: 36415; 71046; 80053; 81001; 83735; 84484; 85025; 85379; 87635; 93005; 99284; A9270; J7120; 93010; 99283; U0002

== ENCOUNTER 2021-11-02 21:01 | Emergency (ER) | payer OTHER ==
[2021-11-02 21:22] VITALS: BP 121/74; PULSE 97
[2021-11-02] MEDS ORDERED: Ondansetron 4 MG/2 ML SDV IVPUSH ONE ×2 (22:21→23:17)
[2021-11-02] MEDS ORDERED: HYDROmorphone 1 MG/ML Syringe IVPUSH STA (22:21)
[2021-11-02] MEDS ORDERED: Sodium Chloride 0.9% 1,000 ML IV SCH (22:30)
== END 2021-11-03 01:11 | disposition home or self-care (01) ==
LOC: JD.ED 21:01
DX: E27.8 Other specified disorders of adrenal gland (principal); Z91.048 Other nonmedicinal substance allergy status; Z91.018 Allergy to other foods; Z72.0 Tobacco use
CPT/HCPCS: 36415; 74177; 80053; 81001; 81025; 83690; 85007; 85027; 96374; 96375; 96376; 99284; J1170; J2405; J7030; 99285

== ENCOUNTER 2021-11-22 00:36 | Emergency (ER) | payer OTHER ==
[2021-11-22 00:53] VITALS: BP 115/70; PULSE 84
== END 2021-11-22 01:30 | disposition home or self-care (01) ==
LOC: JD.ED 00:36
DX: S69.92XA Unspecified injury of left wrist, hand and finger(s), initial encounter (principal); Z91.048 Other nonmedicinal substance allergy status; Z91.018 Allergy to other foods; W54.0XXA Bitten by dog, initial encounter
CPT/HCPCS: 99283

== ENCOUNTER 2022-06-14 19:09 | Emergency (ER) | payer OTHER ==
[2022-06-14 19:51] VITALS: BP 118/74; PULSE 102
[2022-06-14] MEDS ORDERED: Ketorolac 60 MG/2 ML SDV IM ONE (20:38)
== END 2022-06-14 22:04 | disposition home or self-care (01) ==
LOC: JD.ED 19:09
DX: S93.402A Sprain of unspecified ligament of left ankle, initial encounter (principal); F17.210 Nicotine dependence, cigarettes, uncomplicated; Z91.048 Other nonmedicinal substance allergy status; Z91.018 Allergy to other foods; X50.1XXA Overexertion from prolonged static or awkward postures, initial encounter
CPT/HCPCS: 73590; 73610; 96372; 99283; J1885; 99282

== ENCOUNTER 2022-11-23 04:58 | Emergency (ER) | payer OTHER ==
[2022-11-23] MEDS ORDERED: Lidocaine 1% with EPINEPHrine 1:100,000 10 ML MDV INJECT ONE (05:22)
[2022-11-23] MEDS ORDERED: Penicillin V Potassium 500 MG Tab PO STA (05:22)
[2022-11-23] MEDS ORDERED: Bupivacaine 0.5% 10 ML SDV INJECT ONE (05:22)
[2022-11-23] MEDS ORDERED: Lidocaine 1% 10 ML MDV INJECT ONE (05:28)
[2022-11-23] MEDS ORDERED: Bupivacaine 0.5%/EPINEPHrine 1:200,000 30 ML SDV INJECT ONE (05:29)
[2022-11-23 06:15] VITALS: BP 121/79; PULSE 85
== END 2022-11-23 06:15 | disposition home or self-care (01) ==
LOC: JD.ED 04:58
DX: K04.7 Periapical abscess without sinus (principal); F17.210 Nicotine dependence, cigarettes, uncomplicated; Z91.018 Allergy to other foods; Z91.048 Other nonmedicinal substance allergy status
CPT/HCPCS: 64400; 99282; A9270; J3490

== ENCOUNTER 2023-03-07 00:11 | Emergency (ER) | payer OTHER ==
[2023-03-07 00:20] VITALS: BP 117/82; PULSE 115
[2023-03-07] MEDS: Lidocaine 2% Viscous Solution 15 ML UD PO STA (00:53)
[2023-03-07] MEDS: Lidocaine 1% 10 ML MDV INJECT ONE (01:26)
[2023-03-07] MEDS: Penicillin V Potassium 500 MG Tab PO STA (01:26)
== END 2023-03-07 01:36 | disposition home or self-care (01) ==
LOC: JD.ED 00:11
DX: K08.89 Other specified disorders of teeth and supporting structures (principal); F17.210 Nicotine dependence, cigarettes, uncomplicated; Z91.048 Other nonmedicinal substance allergy status; Z91.018 Allergy to other foods; Z79.899 Other long term (current) drug therapy
CPT/HCPCS: 64400; 99282; A9270; J3490

== ENCOUNTER 2023-03-20 06:11 | Emergency (ER) | payer OTHER ==
[2023-03-20 06:21] VITALS: BP 127/76; PULSE 81
== END 2023-03-20 06:40 | disposition home or self-care (01) ==
LOC: JD.ED 06:11
DX: K02.9 Dental caries, unspecified (principal); Z91.018 Allergy to other foods; Z91.048 Other nonmedicinal substance allergy status; Z72.0 Tobacco use
CPT/HCPCS: 99282

== ENCOUNTER 2023-04-16 21:00 | Emergency (ER) | payer OTHER ==
[2023-04-16] MEDS ORDERED: Lidocaine 1% 10 ML MDV INJECT ONE (21:28)
[2023-04-16] MEDS ORDERED: Bupivacaine 0.5%/EPINEPHrine 1:200,000 30 ML SDV INJECT ONE (21:28)
[2023-04-16] MEDS ORDERED: Amoxicillin/Clavulanate K 875-125 MG Tab PO ONE (21:55)
[2023-04-16 22:12] VITALS: BP 120/81; PULSE 82
== END 2023-04-16 22:11 | disposition home or self-care (01) ==
LOC: JD.ED 21:00
DX: K02.9 Dental caries, unspecified (principal); K04.7 Periapical abscess without sinus; Z86.16 Personal history of COVID-19; Z91.048 Other nonmedicinal substance allergy status; Z91.018 Allergy to other foods; Z91.09 Other allergy status, other than to drugs and biological substances; Z79.899 Other long term (current) drug therapy
CPT/HCPCS: 64400; 99282; A9270; J3490

== ENCOUNTER 2023-04-18 20:36 | Emergency (ER) | payer OTHER ==
[2023-04-18 20:45] VITALS: BP 129/79; PULSE 97
== END 2023-04-18 21:20 | disposition home or self-care (01) ==
LOC: JD.ED 20:36
DX: L29.9 Pruritus, unspecified (principal); F17.210 Nicotine dependence, cigarettes, uncomplicated; Z86.16 Personal history of COVID-19; Z98.890 Other specified postprocedural states; Z91.048 Other nonmedicinal substance allergy status; Z91.018 Allergy to other foods; Z79.899 Other long term (current) drug therapy
CPT/HCPCS: 99282

== ENCOUNTER 2024-05-03 03:34 | Emergency (ER) | payer OTHER ==
[2024-05-03 03:44] VITALS: BP 130/82; PULSE 88
[2024-05-03] MEDS: Amoxicillin/Clavulanate K 875-125 MG Tab PO ONE (04:17)
[2024-05-03] MEDS: Diclofenac Sodium 1% Gel 100 GM Tube TOP ONE (04:17)
[2024-05-03] MEDS: Ibuprofen 600 MG Tab PO ONE (04:17)
[2024-05-03] MEDS: Lidocaine 2% Jelly 5 ML Tube TOP ONE (04:30)
== END 2024-05-03 04:31 | disposition home or self-care (01) ==
LOC: JD.ED 03:34
DX: K04.7 Periapical abscess without sinus (principal); K02.9 Dental caries, unspecified; M26.653 Arthropathy of bilateral temporomandibular joint; F17.210 Nicotine dependence, cigarettes, uncomplicated; Z86.16 Personal history of COVID-19; Z79.899 Other long term (current) drug therapy; Z91.018 Allergy to other foods; Z91.048 Other nonmedicinal substance allergy status
CPT/HCPCS: 99282; A9270

== ENCOUNTER 2024-12-27 21:47 | Emergency (ER) | payer BC, OTHER ==
[2024-12-27 22:37] VITALS: BP 123/84; PULSE 89
[2024-12-28] MEDS ORDERED: prednisoLONE Soln 15 MG/5 ML UD Cup PO ONE (00:02)
[2024-12-28] MEDS: Amoxicillin 500 MG Cap PO ONE (00:31)
== END 2024-12-28 00:35 | disposition home or self-care (01) ==
LOC: JD.ED 21:47
DX: H66.93 Otitis media, unspecified, bilateral (principal); Z91.048 Other nonmedicinal substance allergy status; Z91.018 Allergy to other foods; Z79.899 Other long term (current) drug therapy; Z86.16 Personal history of COVID-19
CPT/HCPCS: 99283; A9270; 99282

== ENCOUNTER 2025-07-13 19:52 | Emergency (ER) | payer SELFPAY ==
[2025-07-13 21:05] VITALS: BP 110/75; PULSE 84
== END 2025-07-13 21:03 | disposition home or self-care (01) ==
LOC: JD.ED 19:52
DX: K08.89 Other specified disorders of teeth and supporting structures (principal); Z86.16 Personal history of COVID-19; Z87.891 Personal history of nicotine dependence; Z88.1 Allergy status to other antibiotic agents; Z88.8 Allergy status to other drugs, medicaments and biological substances; Z91.048 Other nonmedicinal substance allergy status; Z91.018 Allergy to other foods; Z79.899 Other long term (current) drug therapy
CPT/HCPCS: 99282; A9270